=== PATIENT | male | born 1950 | race Caucasian/White ===

== ENCOUNTER → 2017-04-01 | Outpatient (REF) | payer OTHER ==
[~2017-04-01] MED LIST: CRES5TAB PO; LIAL1.2T PO; MULTTAB PO
== END ==
LOC: M SFHCLERA 09:15
PROVIDERS: ATTEND Dermatology
DX: D49.2 Neoplasm of unspecified behavior of bone, soft tissue, and skin (principal)

== ENCOUNTER 2017-09-10 10:28 | Day surgery (SDC) | payer OTHER ==
[2017-09-10] MEDS ORDERED: NEOSTIGMINE 10 MG/10 ML VIAL (J2710) (10:29)
[2017-09-10] MEDS: LR 1,000 ML IV (11:14)
[2017-09-10] MEDS ORDERED: ROCURONIUM BROMIDE 50 MG/5 ML VIAL As Ordered (12:34)
[2017-09-10] MEDS ORDERED: PROPOFOL 200 MG/20 ML VIAL As Ordered (12:34)
[2017-09-10] MEDS ORDERED: dexameTHASONE 4 MG/ML 1ML VIAL (J1100) As Ordered (12:34)
[2017-09-10] MEDS ORDERED: LIDOCAINE 2% INJ 100 MG/5 ML SDV (FOR ANES.) As Ordered (12:34)
[2017-09-10] MEDS ORDERED: fentaNYL 250 MCG/5 ML INJECTION (J3010) As Ordered (12:35)
[2017-09-10] MEDS ORDERED: MIDAZOLAM INJ 2 MG/2 ML VIAL (J2250) As Ordered (12:39)
[2017-09-10] MEDS ORDERED: ePHEDrine INJ 50 MG/ML VIAL As Ordered (13:15)
[2017-09-10] MEDS ORDERED: NEOSTIGMINE 10 MG/10 ML VIAL (J2710) As Ordered (13:34)
[2017-09-10] MEDS ORDERED: GLYCOPYRROLATE INJ 0.2 MG/ML 2 ML VIAL As Ordered (13:34)
[2017-09-10] MEDS ORDERED: HYDROmorphone HCL 2 MG/ML 1ML VIAL (J1170) As Ordered (13:47)
[2017-09-10] MEDS: LIDOCAINE W/EPINEPHRINE 1% 20ML VIAL As Ordered (14:37)
[2017-09-10] MEDS: BUPIVACAINE HCL 0.25% 10 ML VIAL As Ordered (14:37)
[2017-09-10] MEDS ORDERED: MORPHINE 2 MG/ML 1ML SYRINGE IV (15:15)
[2017-09-10] MEDS ORDERED: LR 1,000 ML IV (15:15)
[2017-09-10] MEDS ORDERED: PERCOCET 5MG/325MG TAB PO (15:15)
[2017-09-10] MEDS ORDERED: fentaNYL 100 MCG/2 ML INJECTION (J3010) IV (15:15)
[2017-09-10] MEDS ORDERED: NS 1,000 ML IV (15:15)
[2017-09-10] MEDS ORDERED: ONDANSETRON 4MG/2ML VIAL (J2405) IV ×2 (15:15)
[2017-09-10] MEDS ORDERED: NORCO, ANEXSIA 5/325MG TABLET (HYDROcodone/ACETAMINOPHEN) PO (15:15)
== END 2017-09-10 19:53 | disposition home or self-care (01) ==
LOC: M SDC 10:28
DX: K40.90 Unilateral inguinal hernia, without obstruction or gangrene, not specified as recurrent (principal); E78.00 Pure hypercholesterolemia, unspecified; I25.10 Atherosclerotic heart disease of native coronary artery without angina pectoris; G47.33 Obstructive sleep apnea (adult) (pediatric); K51.90 Ulcerative colitis, unspecified, without complications; R06.83 Snoring; Z79.899 Other long term (current) drug therapy; Z79.82 Long term (current) use of aspirin; Z85.828 Personal history of other malignant neoplasm of skin; Z87.81 Personal history of (healed) traumatic fracture
CPT/HCPCS: 49650

== ENCOUNTER → 2018-09-25 | Outpatient (REF) | payer OTHER ==
[~2018-09-25] MED LIST changes: +ASPI1TAB PO; +CLOB0.77; +HYDR1CRE TOP; +MESA1.2T; +OMEG300C3 PO; +[UNRECOGNIZED DRUG - OTHER] TOP
[2018-09-25 14:17] LABS: INFLUENZA A AMPLIFICATION POSITIVE (NEGATIVE); INFLUENZA B AMPLIFICATION NEGATIVE (NEGATIVE)
== END ==
LOC: M LAB REF 13:32
PROVIDERS: ATTEND Nurse Practitioner Adult Health
DX: R50.9 Fever, unspecified (principal)

== ENCOUNTER 2019-11-26 10:32 | Emergency (ER) | payer OTHER ==
[~2019-11-26] VITALS: Ht 175.3 cm; Wt 93.1 kg
[~2019-11-26 10:32] MED LIST changes: -ASPI1TAB PO; +ASPI81TA26 PO
[2019-11-26] MEDS ORDERED: ROSU20TA5 (10:43)
[2019-11-26] MEDS ORDERED: ISOVUE-370 76% 100ML VIAL (Q9967) As Ordered ONE (11:31)
[2019-11-26 11:44] LABS: BASO % 0.3 % (0.0-1.0); EOS % 0.4 % (0.0-3.0); HEMATOCRIT 47.5 % (42.0-52.0); HEMOGLOBIN 15.8 g/dl (13.5-17.5); LYMPH # 0.8 10^3/uL (1.5-5.0); LYMPH % 7.6 % (24.0-44.0); MEAN CORPUSCULAR HEMOGLOBIN 30.7 pg (27.0-33.0); MEAN CORPUSCULAR HGB CONC 33.3 g/dl (32.0-36.5); MEAN CORPUSCULAR VOLUME 92.4 fl (80.0-96.0); MONO # 1.5 10^3/uL (0.0-0.8); MONO % 13.9 % (0.0-5.0); NEUTROPHILS # 8.5 10^3/uL (1.5-8.5); NEUTROPHILS % 77.4 % (36.0-66.0); PLATELET COUNT, AUTOMATED 152 10^3/uL (150-450); RED BLOOD COUNT 5.14 10^6/uL (4.30-6.10); WHITE BLOOD COUNT 10.9 10^3/uL (4.0-10.0)
[2019-11-26 11:57] LABS: ALBUMIN 3.9 GM/DL (3.2-5.2); BILIRUBIN,DIRECT 0.2 MG/DL (0.0-0.2); BILIRUBIN,TOTAL 0.6 MG/DL (0.2-1.0); TOTAL PROTEIN 7.6 GM/DL (6.4-8.2)
[2019-11-26] MEDS ORDERED: CIPR-249 PO (12:02)
[2019-11-26] MEDS ORDERED: FLAG500T PO (12:02)
[2019-11-26] MEDS ORDERED: ONDA4TAB6 PO (12:03)
[2019-11-26 12:15] VITALS: BP 134/85
--- NOTE | 2019-11-26 12:42 | REP ---
CT ABDOMEN AND PELVIS WITH IV CONTRAST: TECHNIQUE: Axial contrast enhanced images from the lung bases to the pubic symphysis using 100 mL Isovue 370 intravenous contrast material with multiplanar reformations. Visualized lung bases demonstrate fibroatelectatic change. Liver, spleen, adrenals, pancreas and kidneys are unremarkable. There is no hydronephrosis bilaterally. There is mild atherosclerotic calcification of the abdominal aorta without aneurysm. There is no significant adenopathy. No free air is seen. Multiple sigmoid diverticula are present. There is diffuse thickening of the sigmoid colon with pericolonic inflammation and a mild amount of adjacent free fluid. Findings are consistent with sigmoid diverticulitis. There is no evidence of abscess. Urinary bladder is mildly distended and grossly unremarkable. Prostate is somewhat enlarged. There are degenerative changes of the spine. IMPRESSION: Sigmoid diverticulitis. Mild free fluid in the left pelvis. No free air or abscess. Electronically Signed by Brennan Quinn MD 11/26/2019 02:34 P
== END 2019-11-26 12:16 | disposition home or self-care (01) ==
LOC: M ED 10:32
DX: K57.32 Diverticulitis of large intestine without perforation or abscess without bleeding (principal); E78.5 Hyperlipidemia, unspecified; Z79.82 Long term (current) use of aspirin; Z79.899 Other long term (current) drug therapy
CPT/HCPCS: 36415; 74177; 80047; 80076; 83690; 85025; 99284; Q9967

== ENCOUNTER 2020-03-16 06:41 | Day surgery (SDC) | payer OTHER ==
[~2020-03-16 06:41] MED LIST changes: +CIPR-249 PO; +FLAG500T PO; +ONDA4TAB6 PO; +ROSU20TA5
[2020-03-16] MEDS ORDERED: LIDOCAINE 2% 100MG/5ML SDV (FOR ANES.) ONE (07:14)
[2020-03-16] MEDS ORDERED: propofoL 200 MG/20 ML VIAL ONE (07:14)
--- NOTE | 2020-04-20 11:27 | ROOR ---
Patient Name: Calvin Spencer Procedure Date: 03/16/2020 8:24 AM Date of : 1950 Age: 69 Room: 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 Procedure: Pre-Anesthesia Assessment: - The heart rate, respiratory rate, oxygen saturations, blood pressure, adequacy of pulmonary ventilation, and response to care were monitored throughout the procedure. The Colonoscope was introduced through the anus and advanced to the cecum, identified by appendiceal orifice and ileocecal valve. The colonoscopy was performed without difficulty. The patient tolerated the procedure well. The quality of the bowel preparation was excellent. Findings: The perianal and digital rectal examinations were normal. Non-bleeding internal hemorrhoids were found during retroflexion. The hemorrhoids were small and Grade I (internal hemorrhoids that do not prolapse). Multiple small and large-mouthed diverticula were found in the recto-sigmoid colon, sigmoid colon and descending colon. A diminutive polyp was found in the ascending colon. The polyp was sessile. The polyp was removed with a cold biopsy forceps. Resection and retrieval were complete. A small polyp was found at 40 cm proximal to the anus. The polyp was sessile. The polyp was removed with a cold snare. Resection and retrieval were complete. The exam was otherwise without abnormality on direct and retroflexion views. Impression: - Non-bleeding internal hemorrhoids. - Diverticulosis in the recto-sigmoid colon, in the sigmoid colon and in the descending colon. - One diminutive polyp in the ascending colon, removed with a cold biopsy forceps. Resected and retrieved. - One small polyp at 40 cm proximal to the anus, removed with a cold snare. Resected and retrieved. - The examination was otherwise normal on direct and retroflexion views. - The exam was otherwise normal to the cecum. Recommendation: - Patient has a contact number available for emergencies. The signs and symptoms of potential delayed complications were discussed with the patient. Return to normal activities tomorrow. Written discharge instructions were provided to the patient. - High fiber diet. - Discharge patient to home. - Continue present medications. - Await pathology results. - Telephone GI clinic for pathology results in 1 week. - Repeat colonoscopy in 5 years for surveillance based on pathology results. - Return to referring physician. - The findings and recommendations were discussed with the patient. Long Roblero MD Long Roblero MD 03/16/2020 8:53:28 AM Number of Addenda: 0 Note Initiated On: 03/16/2020 8:24 AM Estimated Blood Loss: Estimated blood loss: none.
== END 2020-03-16 11:17 | disposition home or self-care (01) ==
LOC: M SDC 06:41
PROVIDERS: ATTEND Internal Medicine Gastroenterology
DX: D12.2 Benign neoplasm of ascending colon (principal); Z86.010 Personal history of colon polyps; K57.30 Diverticulosis of large intestine without perforation or abscess without bleeding; K64.0 First degree hemorrhoids; Z79.82 Long term (current) use of aspirin; Z79.899 Other long term (current) drug therapy

== ENCOUNTER → 2020-07-05 | Outpatient (CLI) | payer SELFPAY | LOC: EEVIPCON 13:37 → M LABSMTC 13:37 | PROVIDERS: ATTEND Pediatrics | DX: Z20.828 Contact with and (suspected) exposure to other viral communicable diseases (principal) ==

== ENCOUNTER → 2021-04-24 | Outpatient (REF) | payer OTHER ==
[~2021-04-24] MED LIST changes: +ROSU40TA4 PO; +VITMTA PO
== END ==
LOC: M LAB REF 09:39
PROVIDERS: ATTEND Internal Medicine Gastroenterology
DX: K51.30 Ulcerative (chronic) rectosigmoiditis without complications (principal)

== ENCOUNTER → 2021-07-15 | Outpatient (CLI) | payer OTHER | LOC: M LABSMTC 11:07 | PROVIDERS: ATTEND Anesthesiology | DX: Z01.812 Encounter for preprocedural laboratory examination (principal); Z20.822 Contact with and (suspected) exposure to COVID-19 ==

== ENCOUNTER 2021-07-20 07:36 | Day surgery (SDC) | payer OTHER ==
[~2021-07-20] VITALS: Ht 177.8 cm; Wt 83.9 kg
[~2021-07-20 07:36] MED LIST changes: +NS 1,000 ML IV ONE
--- OUTSIDE RECORDS SUMMARY | 2021-07-20 07:40 | CCD | Continuity of Care Document ---
Author Author Calvin Hatch Organization Unknown Address [address] [place] [address] Phone [phone] Care Team Providers Care Line Tender Flakeboard Name Role Phone Bautista Aburto MD. AUTM [phone] Problems Active Problems Provider Date Sleep apnea Rip Manzanares MD Onset: 03/27/2021 Age-related cataract Rip Manzanares MD Onset: 03/27/2021 History of phacoemulsification of catara ct with implantation of intraocular lens Rip Manzanares MD Onset: 05/05/2021 Social History Type Date Description Comments Sex Unknown ETOH Use Rarely consumes alcohol Tobacco Use Start: Unknown Patient has never smoked Smoking Status Reviewed: 05/09/21 Patient has never smoked Allergies and adverse reactions Description No Known Drug Allergies Medications Active Medications SIG Qnty Indications Ordering Provide r Date Ocuflox 0.3% Solution 1 drop in the left eye four times a day 10ml Rip Manzanares MD 2020 Pred Forte 1% Suspension 1 drop left eye 4 x day 5ml Rip Manzanares MD 04/12/2021 Crestor 10mg Tablets 1 by mouth every day Unknown Multi Vitamin Tablets Unknown Lialda 1.2gm Tablets DR Unknown Aspirin 81mg Tablets DR 1 by mouth every day Unknown Immunizations Description No Information Available Vital Signs Date Vital Result Comment 05/17/2021 9:19am Intraocular Pressure Right Eye 15 mmHg Tp 09:20 Am Intraocular Pressure Left Eye 16 mmHg Tp 09:20 A m 05/05/2021 1:38pm Intraocular Pressure Right Eye 15 mmHg Tp 01:38 PM Intraocular Pressure Left Eye 14 mmHg Tp Results Description No Information Available Procedures Date Code Description Status 03/28/2021 17613 IOL Master Completed 03/28/2021 05640 Exam Comprehensive, New PT Compl eted Medical Devices Description No Information Available Encounters Type Date Location Provider Dx Diagnosis Office Visit 05/17/2021 9:30a Main Office Sonu Hatch, OD Z96.1 Presence of intraocular lens Office Visit 05/05/2021 1:30p Main Office Rip Manzanares MD Z96.1 Presence of intraocular lens Office Visit 03/28/2021 7:50a Main Office Rip Manzanares MD H25.1 3 Age- related nuclear cataract, bilateral H35.372 Puckering of macula, left ey e Assessments Date Code Description Provider 05/17/2021 Z96.1 Presence of intraocular lens Sco maribell Hatch, OD 05/05/2021 Z96.1 Presence of intraocular lens Warren gisela Manzanares MD 04/12/2021 H25.12 Age-related nuclear cataract, le ft eye Rip Manzanares MD 04/12/2021 H25.12 Age-related nuclear cataract, le ft eye Schedule HX/Phys/Calc 03/28/2021 H25.13 Age-related nuclear cataract, bi lateral Rip Manzanares MD 03/28/2021 H25.13 Age-related nuclear cataract, bi lateral Rip Manzanares MD 03/28/2021 H35.372 Puckering of macula, left eye [facility] Triston Manzanares MD 03/28/2021 H25.13 Age-related nuclear cataract, bi lateral Schedule HX/Phys/Calc Plan of Treatment Future Appointment(s):* 01/17/2022 8:15 am - Rip Manzanares MD at Main Office 05/17/2021 - Sonu Hatch, OD* Z96.1 Presence of intraocular lens* Comments: * -d/w pt. Post-op care.- Continue Pred forte 1 drop four times a day left eye for 1 week then two times a day for 1 week then one time a day for one week then discontinue - Updated glasses prescription given today OK to use +2.50 OTC readers PRN * Follow up:* 8-10 months dilation IOL check with SGS Functional Status Description No Information Available Mental Status Description No Information Available Referrals Description No Information Available
--- OUTSIDE RECORDS SUMMARY | 2021-07-20 07:40 | CCD | Continuity of Care Document ---
Author Author Calvin Manzanares Organization Unknown Address [address] [place] [address] Phone [phone] Care Team Providers Care Ash Collector Name Role Phone Bautista Aburto MD. AUTM [phone] Problems Active Problems Provider Date Sleep apnea [...] Information Available Procedures Date Code Description Status 05/04/2021 75626 Extracapsular Cat RE M W/Insert IOL,Manual/Phacoemulsification OS Completed 03/28/2021 96552 IOL Master Completed 03/28/2021 85390 Exam Comprehensive, New PT Compl eted Medical [...] of intraocular lens Warren gisela Manzanares MD 05/04/2021 H25.12 Age-related nuclear cataract, le ft eye Rip Manzanares MD 04/12/2021 H25.12 Age-related nuclear cataract, le ft eye Rip Manzanares MD 04/12/2021 H25.12 Age-related nuclear cataract, le ft eye Schedule HX/Phys/Calc 03/28/2021 H25.13 Age-related nuclear cataract, bi lateral Rip Manzanares MD 03/28/2021 H25.13 Age-related nuclear cataract, bi lateral Rip Manzanares MD 03/28/2021 H35.372 Puckering of macula, left eye [facility] Triston Manzanares MD 03/28/2021 H25.13 Age-related nuclear [...]
--- OUTSIDE RECORDS SUMMARY | 2021-07-20 07:40 | CCD | Continuity of Care Document ---
Author Author Calvin PAUL Organization Unknown Address [address] [place] [address] Phone [phone] Care Team Providers Care Budget Manager Name Role Phone Bautista Aburto MD [facility] [phone] Problems Active Problems Provider Date Atopic dermatitis Tomas Acevedo Onset: 2010 Social History Type Date Description Comments Sex Unknown Tobacco Use Start: Unknown Never Smoked Cigarettes Smoking Status Reviewed: 07/17/21 Never Smoked Cigarettes ETOH Use Drinks Alcoholic Beverages Occas ionally Allergies and adverse reactions Description No Known Drug Allergies Medications Active Medications SIG Qnty Indications Ordering Provide r Date Cefdinir 300mg Capsules 1 cap by mouth twice a day for 7 days 14caps J20.9 Patrica Song JR. 07/17/2021 Albuterol Sulfate HFA 108(90Base) mcg/Act Aerosol 2 puffs inhaled every 4-6 hours as needed for sob/wheeze 8.500gm J20.9 Bautista Aburto JR., M.D. 07/17/2021 Lialda Unknown Crestor Unknown Mvi Unknown Aspir-[address] qd Unknown Immunizations Description No Information Available Vital Signs Date Vital Result Comment 07/17/2021 3:00pm BP Systolic 154 mmHg BP Diastolic 107 mmHg Heart Rate 84 /min Respiratory Rate 14 /min O2 % BldC Oximetry 96 % Body Temperature 98.6 F Weight 190.00 lb Height 70 inches 5'10" BMI (Body Mass Index) 27.3 kg/m2 Pain Level 0 01/02/2011 7:00pm BP Systolic 130 mmHg BP Diastolic 90 mmHg Heart Rate 80 /min Respiratory Rate 14 /min O2 % BldC Oximetry 98 % Body Temperature 98.0 F Weight 200.00 lb Height 70 inches 5'10" BMI (Body Mass Index) 28.7 kg/m2 Pain Level 0 Results Description No Information Available Procedures Date Code Description Status 07/17/2021 12248 Office/Outpatient New Low MDM 30 -44 Minutes Completed Medical Devices Description No Information Available Encounters Type Date Location Provider Dx Diagnosis Office Visit 07/17/2021 2:35p Main Office Tomas James J2 0.9 Acute bronchitis, unspecified R03.0 Elevated blood-pressure read ing, w/o diagnosis of htn Assessments Date Code Description Provider 07/17/2021 J20.9 Acute bronchitis, unspecified Tomas Benitez 07/17/2021 R03.0 Elevated blood-press ure reading, without diagnosis of hypertension Tomas James Plan of Treatment 07/17/2021 - Tomas James* J20.9 Acute bronchitis, unspecified* New Medication:* Cefdinir 300 mg - 1 cap by mouth twice a day for 7 days * Albuterol Sulfate HFA 108(90 Base) mcg/Act - 2 puffs inhaled every 4-6 hours as needed for sob/wheeze * Comments:* Discussed likely viral etiologyimproving as expectedsigns/symptoms of bacterial etiologies discussed, start antibiotics if needed for concerning symptoms Supportive careIncrease fluidsRest OTC cough/cold meds as needed per package instructionsFollow with PCPReturn as needed for increasing or persisting symptoms * R03.0 Elevated blood-pressure reading, without diagnosis of hypertension* Comments:* follow with PCP no history of HTN Functional Status Description No Information Available Mental Status Description No Information Available Referrals Description No Information Available
--- OUTSIDE RECORDS SUMMARY | 2021-07-20 07:40 | CCD | Continuity of Care Document ---
Author Author Calvin RUBI MD Organization Unknown Address [address] [place] [address] Phone [phone] Care Team Providers Care Auto Body Mechanic Name Role Phone Bautista Aburto MD @ [facility] Int AUTM AUTM Unavailable Problems Active Problems Provider Date Inguinal hernia without obstruction AND without gangrene Varinder Singh JR, MD Onset: 09/10/2017 Allergic rhinitis Yung Dorman MD Onset: 06/01/2014 Obstructive sleep apnea syndrome Yung Dorman MD Onset: 05/29/2011 Overweight Yung Dorman MD Onset: 06/05/2011 Social History Type Date Description Comments Sex Unknown ETOH Use Rarely consumes alcohol Recreational Drug Use Denies Drug Use Tobacco Use Reviewed: 05/29/18 Patient has never smoked Smoking Status Reviewed: 07/27/20 Patient has never smoked Allergies, Adverse Reactions, Alerts Description No Known Drug Allergies Medications Active Medications SIG Qnty Indications Ordering Provide r Date Miralax 17GM/Scoop Powder use as directed see dr rubi colon preparation instructions 510gm K51.30 Balaji sylwia Rubi MD 04/10/2021 Milk Of Magnesia 1200mg/15ML Suspe nsion take 45 milliliters by mouth as directed on colonoscopy prep sheet. 355ml K51.30 Jeison Rubi MD 04/10/2021 CPAP +5 Marras Yung Dorman MD 05/23 [address]da [address] Table[address] 2 tabs every day Unknown Aspirin 81mg Tablets DR 1 by mouth every day Unknown Multivitamin Men 50+ Men 50+ Table ts tab by mouth every day Unknown Tretinoin (Emollient) 0.05% Cream every week Unknown Proctosol HC 2.5% Cream apply to affected area as needed Unknown Crestor 40mg Tablets Unknown Immunizations CPT Code Status Date Vaccine Lot # [id number] Given 05/28/2018 Influenza Virus Vaccine, Quadrivalent, Slit Virus, [place] Use 47330 Given 05/26/2015 Influenza Virus Split 3 Yrs And Above For Intramuscular Use 26820 Given 05/17/2014 Influenza Virus Split 3 Yrs And Above For Intramuscular Use Q2036 Given 05/12/2013 Influenza Vaccine 3 Years Of Age Or Older (Flulaval) Q2036 Given 05/20/2012 Influenza Vaccine 3 Years Of Age Or Older (Flulaval) Vital Signs Date Vital Result Comment 04/10/2021 10:31am BP Systolic 138 mmHg BP Diastolic 92 mmHg Height 70 inches 5'10" Weight 194.00 lb BMI (Body Mass Index) 27.8 kg/m2 Alpine Body Weight 166 lb Weight 87.998 kg BSA (Body Surface Area) 2.06 m2 07/27/2020 10:42am BP Systolic 130 mmHg BP Diastolic 80 mmHg Heart Rate 70 /min O2 % BldC Oximetry 98 % Room Air Height 70 inches 5'10" Weight 196.00 lb BMI (Body Mass Index) 28.1 kg/m2 Alpine Body Weight 166 lb Weight 88.906 kg BSA (Body Surface Area) 2.07 m2 Results Test Acquired Date Facility Test Result H/L Range Note Laboratory test finding 04/24/2021 [facility] Main Lab [address] [place], [place] [id number] [phone] Calprotectin Stool 28 ug/g Normal 0-120 1, 2 1 Concentration Interpreta tion Follow-Up <16 - 50 ug/g Normal None >50 -120 ug/g Borderline Re-evaluate in 4-6 weeks >120 ug/g Abnormal Repeat as clinically indicated Performed at: - [address] [id number] Teacher: Kory Frey MD, Phone: [phone] 05/11/21 (Thr May 11) 03:53 PM JEISON RUBI no significant inflammation(no active colitis) Procedures Date Code Description Status 04/10/2021 84899 Office/Outpatient New Low MDM 30 -44 Minutes Completed Medical Devices Description No Information Available Encounters Type Date Location Provider Dx Diagnosis Office Visit 04/10/2021 10:30a [facility] Gastroenterology Pra ctice Jeison Rubi MD K51.30 Ulcerative (chronic) rectosi gmoiditis without complications Assessments Date Code Description Provider 04/10/2021 K51.30 Ulcerative (chronic) rectosigmoi ditis without complications Jeison Rubi MD Plan of Treatment Future Appointment(s):* 07/20/2021 3:30 pm - Yung Dorman MD at [facility] Pulmonary/Thoracic 04/10/2021 - Jeison Rubi MD* 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 his last 2 scopes were free of inflammation even on biopsy. I question the need for continued aggreaaaive follow up scopes and even perhaps the mesalamine he is still taking.I would recommend:1) colonoscopy with biopsy. dep on this, we can perhaps reduce intervals of colonoscop[y to every 2-3 yrs.---To be discussed2) cont Lialda at current dose. further rec dep on my colonoscopy. consideratiuon may be given to a d/c or wean.3) Stool calprotectin to assess inflammatory load Functional Status Description No Information Available Mental Status Description No Information Available Referrals Refer to Reason for Referral Status Appt Date Bernard Lu M.D. ULCERTIVE COLITIS Created [facility] [address] [facility], [address] [place] [address] [phone]
--- OUTSIDE RECORDS SUMMARY | 2021-07-20 07:40 | CCD | Continuity of Care Document ---
Author Author Calvin RUBI MD Organization Unknown Address [address] [place] [address] Phone [phone] Care Team Providers Care Pizza Driver Name Role Phone Bautista Aburto MD @ [facility] Int AUTM [phone] AUTM Unavailable Problems Active Problems Provider Date [...] directed on colonoscopy prep sheet. 355ml K51.30 Mehdi Rubi MD 04/10/2021 CPAP +5 Marras Yung [...] CPT Code Status Date Vaccine Lot # [id number] Given 05/28/2018 Influenza Virus Vaccine, Quadrivalent, Slit Virus, Im Use 09135 Given 05/26/2015 Influenza Virus Split 3 Yrs And Above For Intramuscular Use 00329 Given 05/17/2014 Influenza Virus Split 3 Yrs [...] lb BMI (Body Mass Index) 27.8 kg/m2 Spearman Body Weight 166 lb Weight 87.998 kg BSA (Body Surface Area) 2.06 m2 07/27/2020 10:42am BP Systolic 130 mmHg BP Diastolic 80 mmHg Heart Rate 70 /min O2 % BldC Oximetry 98 % Room Air Height 70 inches 5'10" Weight 196.00 lb BMI (Body Mass Index) 28.1 kg/m2 Spearman Body Weight 166 lb Weight 88.906 kg BSA (Body Surface Area) 2.07 m2 Results Description No Information Available Procedures Date Code Description Status 04/10/2021 01965 Office/Outpatient New Low MDM 30 -44 Minutes Completed Medical Devices Description No Information Available Encounters Type Date Location Provider Dx Diagnosis Office Visit 04/10/2021 10:30a [facility] Gastroenterology Pra ctice Mehdi Rubi MD K51.30 Ulcerative (chronic) rectosi gmoiditis without complications Assessments Date Code Description Provider 04/10/2021 K51.30 Ulcerative (chronic) rectosigmoi ditis without complications Mehdi Rubi MD Plan of Treatment Future Appointment(s):* 07/20/2021 3:30 pm - Yung Dorman MD at [facility] Pulmonary/Thoracic 04/10/2021 - Mehdi Rubi MD* 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 ULCERTIVE COLITIS Created [facility] [address] [facility], [address] [place] [address] [phone]
--- OUTSIDE RECORDS SUMMARY | 2021-07-20 07:40 | CCD | Continuity of Care Document ---
Author Author Calvin Aburto MD Organization Unknown Address [address] [facility] [address] [place] [address] Phone [phone] Care Team Providers Care Friction Paint Machine Tender Name Role Phone Bautista Aburto JR, MD AUTM Unavailable Problems Active Problems Provider Date Ulcerative colitis Bautista Aburto MD Onset: 07/13/2011 Obstructive sleep apnea syndrome Bautista Aburto MD Onset : 07/13/2011 Pure hypercholesterolemia Bautista Aburto MD Onset: 07/13 Pure hyperglyceridemia Bautista Aburto MD Onset: 07/13/20 11 Right bundle branch block Bautista Aburto MD Onset: 07/13 Social History Type Date Description Comments Sex Unknown ETOH Use Occasionally consumes liquor Tobacco Use Start: Unknown Patient has never smoked Allergies, Adverse Reactions, Alerts Description No Known Drug Allergies Medications Active Medications SIG Qnty Indications Ordering Provide r Date Zofran 4mg Tablets 1 by mouth every 6 hrs. as needed nausea 24tabs SERGIO Mcleod 09/25/2018 Prevnar 13 Suspension 0.5 cubic centimeters x 1 1units Bautista Aburto MD 08/07/2018 Shingrix 50mcg/0.5ML Suspension Re c administer 0.5 milliliters intramuscular, repeat in 2 to 6 months 2units Bautista Aburto MD 08/07/2018 Multivitamins Tablets 1 po q d 30tabs Bautista Aburto MD 07/13/[address] Table[address] 2 po qd Bautista Aburto MD 07/13/2011 Aspir-[address] 1 po qd Bautista Aburto MD 07/13/2011 Rosuvastatin Calcium 20mg Tablets 1 by mouth every day Unknown Medications Administered in Office Medication SIG Qnty Indications Ordering Provider Date Covid-19 vaccine, Unspecified Inj ection Unknown 08/28/2020 Immunization Adminstration,1 Vaccine/Tox oid Injection Bautista Aburto MD 2018 Immunizations CPT Code Status Date Vaccine Lot # [id number] Given 2019 Pneumovax 23 [id number] Given 07/31/2019 Pneumovax 23 [id number] U-Flu Given 05/28/2018 Influenza,Unspecified 80456 Given 02/10/2014 Tetanus/Diptheria(Td)Toxoids Preservative Free Q2037 Given 07/13/2011 Fluvirin Virus Vaccine Vital Signs Date Vital Result Comment 04/18/2021 1:30pm BP Systolic 128 mmHg BP Diastolic 70 mmHg Heart Rate 74 /min Weight 195.00 lb 08/15/2020 8:02am BP Systolic 130 mmHg BP Diastolic 79 mmHg Weight 194.00 lb Results Description No Information Available Procedures Date Code Description Status 04/18/2021 95742 Office/Outpatient Established Mo d MDM 30-39 Min Completed 03/29/2021 690818791 Diabetic Retinal Eye Exam Comple amanuel 03/16/2020 65412588 Colonoscopy Completed 03/09/2020 736264110 Diabetic Retinal Eye Exam Comple amanuel 12/07/2015 90708053 Colonoscopy Completed 01/04/2012 23183473 Colonoscopy Completed 07/30/2008 49312694 Colonoscopy Completed Medical Devices Description No Information Available Encounters Type Date Location Provider Dx Diagnosis Office Visit 04/18/2021 1:30p [facility] Bautista Aburto MD Z01.810 Encounter for preprocedural cardiovascul ar examination H25.012 Cortical age-related catarac t, left eye K51.90 Ulcerative colitis, unspecif ied, without complications E78.00 Pure hypercholesterolemia, u nspecified G47.33 Obstructive sleep apnea (randy lt) (pediatric) Assessments Date Code Description Provider 04/18/2021 Z01.810 Encounter for preprocedural card iovascular examination Bautista Aburto MD 04/18/2021 H25.012 Cortical age-related cataract, l eft eye Bautista Aburto MD 04/18/2021 K51.90 Ulcerative colitis, unspecified, without complications Bautista Aburto MD 04/18/2021 E78.00 Pure hypercholesterolemia, unspe cified Bautista Aburto MD 04/18/2021 G47.33 Obstructive sleep apnea (adult) (pediatric) Bautista Aburto MD Plan of Treatment Future Appointment(s):* 08/15/2021 7:40 am - [facility] * 08/16/2021 8:00 am - [facility] 04/18/2021 - Bautista Aburto MD* Z01.810 Encounter for preprocedural cardiovascular examination * H25.012 Cortical age-related cataract, left eye * K51.90 Ulcerative colitis, unspecified, without complications * E78.00 Pure hypercholesterolemia, unspecified * G47.33 Obstructive sleep apnea (adult) (pediatric) Functional Status Description No Information Available Mental Status Description No Information Available Referrals Description No Information Available
--- OUTSIDE RECORDS SUMMARY | 2021-07-20 07:40 | CCD | Continuity of Care Document ---
Author Author Calvin Manzanares Organization Unknown Address [address] [place] [address] Phone [phone] Care Team Providers Care X Ray Nurse Name Role Phone Bautista Aburto MD. AUTM [phone] Problems Active Problems Provider Date Sleep apnea Rip Manzanares MD Onset: 03/27/2021 Age-related cataract Rip Manzanares MD Onset: 03/27/2021 History of phacoemulsification of catara ct with implantation of intraocular lens Rip Manzanares MD Onset: 05/05/2021 Social History Type Date Description Comments Sex Unknown ETOH Use Rarely consumes alcohol Tobacco Use Start: Unknown Patient has never smoked Smoking Status Reviewed: 03/27/21 Patient has never smoked Allergies, Adverse Reactions, [...] Available Vital Signs Date Vital Result Comment 05/05/2021 1:38pm Intraocular Pressure Right Eye 15 mmHg Tp 01:38 PM Intraocular Pressure Left Eye 14 mmHg Tp 03/28/2021 8:19am Intraocular Pressure Right Eye 16 mmHg Tp 08:19 Am Intraocular Pressure Left Eye 12 mmHg Tp 08:19 A m Results Description No Information Available Procedures Date Code Description Status 03/28/2021 50286 IOL Master Completed 03/28/2021 55208 Exam Comprehensive, New PT Compl eted Medical Devices Description No Information Available Encounters Type Date Location Provider Dx Diagnosis Office Visit 05/05/2021 1:30p Main Office Rip Manzanares MD Z96.1 Presence of intraocular lens Office Visit 03/28/2021 7:50a Main Office Rip Manzanares MD H25.1 3 Age- related nuclear cataract, bilateral H35.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 Post-op care and instruction sheet. -Continue Ocuflox 1 drop four times a day left eye for 1 week then discontinue.-Continue Predforte 1 drop four times a day left eye for 2 weeks then two times a day for 1 week then one time a day for one week then discontinue * Follow up:* Keep scheduled appointment. Auto and refract. ou Dilate. os Functional Status Description No Information Available Mental Status Description No Information Available Referrals Description No Information Available
--- OUTSIDE RECORDS SUMMARY | 2021-07-20 07:40 | CCD ---
Author Author Mehdi Gusman MD [facility] Organization Mehdi Gusman MD [facility] Address [address] [address] Phone Care Team Providers Care Handling Tech Name Role Phone Uzma STRICKLAND, GINGER, Mehdi Soto Unavailable [phone] Trina Campos PP [phone] Reason for Referral No Reason for Referral Recorded Problems Includes: Active, inactive, and resolved Problems All Visits Onset Date - Time Resolved Date - Time Provider Co ndition Status Cataract Senile Posterior Subcapsular Polar 09/12/2020 - 12:00AM Kendall Roblero DO Inactive Cataract Senile Nuclear 09/12/2020 - 12:00AM Mehdi Gusman MD, FACS Active Retinal Tear 03/09/2020 - 12:00AM Mehdi Gusman MD, FACS Active Vitreous Hemorrhage 03/09/2020 - 12:00AM 09/12/2020 - 7:45AM Balaji Gusman MD, FACS Resolved Conjunctivitis Acute Atopic 05/18/2019 - 12:00AM Mehdi Gusman MD, FACS Inactive Trichiasis of Eyelid 05/18/2019 - 12:00AM Mehdi Lucas MD, FACS Inactive Epidermal Inclusion Cyst 05/01/2016 - 12:00AM Mehdi Gusman MD, FACS Active Note: both lower eyelids Blepharitis Squamous 05/01/2016 - 12:00AM Mehdi Lucas MD, FACS Active Squamous blepharitis left lower eyelid 05/01/2016 - 12:00AM Mehdi Schafer MD, FACS Active Squamous blepharitis left upper eyelid 05/01/2016 - 12:00AM Mehdi Schafer MD, FACS Active Squamous blepharitis right lower eyelid 05/01/2016 - 12:00AM Mehdi Schafer MD, FACS Active Vitreous Disorders Degeneration 05/01/2016 - 12:00AM Mehdi Gusman MD, FACS Active Blepharitis Both Eyelids 04/29/2015 - 12:00AM Mehdi Gusman MD, FACS Inactive Note: Unchanged Dry Eye Syndrome Both Eyes 04/29/2015 - 12:00AM Mehdi Gusman MD, FACS Active Note: Unchanged Vitreous Floaters Both Eyes 04/29/2015 - 12:00AM Mehdi Gusman MD, FACS Inactive Note: Unchanged Plan of Treatment Referrals To Diagnosis Referral to [facility] Mehdi Gusman MD, FACS [place] of retina without detachment, left eye Referral to Dr. Osbaldo Gusman MD, FACS Age-r elated nuclear cataract, left eye Findings Encounter Date Requested Referred to: Dr. Roblero 1 Year Follow-Up with Mehdi Gusman MD, FACS 09/12/2020 Assessments Includes: Assessments for all patient encounters Findings Encounter Date Chorioretinal scar Cataract Evaluation with Kendall Gilmore in DO 12/01/2020 Dry eye syndrome Cataract Evaluation with Kendall Gilmore in DO 12/01/2020 Nuclear senile cataract Cataract Evaluation with Kendall schaeffer DO 12/01/2020 Posterior subcapsular polar senile cataract Cataract E valuation with Kendall Roblero DO 12/01/2020 Vitreous degeneration Cataract Evaluation with Kendall flannery DO 12/01/2020 Dry eye syndrome of both eyes 1 Year Follow-Up with Beau Gusman MD, FACS 09/12/2020 Nuclear senile cataract 1 Year Follow-Up with Mehdi Mckay MD, FACS 09/12/2020 Posterior subcapsular polar senile cataract 1 Year Fol low-Up with Mehdi Gusman MD, FACS 09/12/2020 Squamous blepharitis right upper eyelid , right lower eyelid, left upper eyelid, left lower eyelid 1 Year Follow-Up with Mehdi Gusman MD, FACS 08/2020 Vitreous degeneration 1 Year Follow-Up with Mehdi bowman MD, FACS 09/12/2020 Retinal tear TRIAGE NON URGENT with Mehdi fuller MD, FACS 03/09/2020 Vitreous hemorrhage TRIAGE NON URGENT with Mehdi fuller MD, FACS 03/09/2020 Acute atopic conjunctivitis 1 Year Follow-Up with Mehdi Hines MD, FACS 05/18/2019 Dry eye syndrome of both eyes 1 Year Follow-Up with Beau Gusman MD, FACS 05/18/2019 Squamous blepharitis 1 Year Follow-Up with Mehdi fuller MD, FACS 05/18/2019 Trichiasis of the eyelid 1 Year Follow-Up with Mehdi Peguero MD, FACS 05/18/2019 Vitreous degeneration 1 Year Follow-Up with Mehdi bowman MD, FACS 05/18/2019 Dry eye syndrome of both eyes 1 Year Follow-Up with eBau Gusman MD, FACS 05/19/2018 Squamous blepharitis right upper eyelid , right lower eyelid, left upper eyelid, left lower eyelid 1 Year Follow-Up with Mehdi Gusman MD, FACS 03/2018 Vitreous degeneration 1 Year Follow-Up with Mehdi bowman MD, FACS 05/19/2018 Dry eye syndrome of both eyes 1 Year Follow-Up with Beau Gusman MD, FACS 05/02/2017 Squamous blepharitis right upper eyelid , right lower eyelid, left upper eyelid and left lower eyelid 1 Year Follow-Up with Mehdi Gusman MD, FACS 05/02/2017 Vitreous degeneration 1 Year Follow-Up with Mehdi bowman MD, FACS 05/02/2017 Dry eye syndrome of both eyes 1 Year Follow-Up with Beau Gusman MD, FACS 05/01/2016 Epidermal cyst right lower eyelid and left lower eyel id 1 Year Follow-Up with Mehdi Gusman MD, FACS 05/01/2016 Squamous blepharitis right upper eyelid , right lower eyelid, left upper eyelid, left lower eyelid 1 Year Follow-Up with Mehdi Gusman MD, FACS Vitreous degeneration 1 Year Follow-Up with Mehdi bowman MD, FACS 05/01/2016 Blepharitis in both eyes NEW PATIENT with Mehdi cummings MD, FACS 04/29/2015 Dry eye syndrome of both eyes NEW PATIENT with Mehdi Peguero MD, FACS 04/29/2015 Vitreous floaters in both eyes NEW PATIENT with Mehdi Lucas MD, FACS 04/29/2015 Instructions Instructions not supported for this document typeNo Instructions Recorded Medical Equipment - Implanted Devices Includes: Current and historical DevicesNo Medical Equipment Recorded Medications Includes: Current and historical Medications Current Medications (continue as prescribed) SB Low Dose ASA EC 81 MG Tablet Delayed Release 04/29/2015 Provider: Diagnosis: Daily Value Multivitamin Tablet 04/29/2015 Provider : Diagnosis: Crestor 10 MG Tablet 04/29/2015 Provider: Diagnosis: 1/2 tab (5mg) Lialda 1.2 GM Tablet Delayed Release 04/29/2015 Pro vider: Diagnosis: 2 tabs Past Medications on file Crestor 40 MG Tablet 04/29/2015 - 04/29/2015 Provider: Diagnosis: Lialda 1.2 GM Tablet Delayed Release 04/29/2015 - 04/29/2015 Provider: Diagnosis: Medications Administered Includes: Administered Medications in patient's chartNo Administered Medications Recorded Vital Signs Includes: Vital Signs from 07/04/2020 through 07/04/2021No Vital Signs Recorded For Specified Dates Results Includes: Results from 07/04/2020 through 07/04/2021No Results Recorded For Specified Dates History of Present Illness History of Present Illness not supported for this document typeNo History of Present Illness Recorded Social History Description Last Updated Tobacco non-user 09/12/2020 Never smoked 05/18/2019 Alcohol 05/18/2019 No tobacco use 05/18/2019 Not using drugs 05/18/2019 Smoking status : Never smoker 05/18/2019 Alcohol use is infrequent 04/29/2015 Procedures and Surgical History Includes: Procedures from 07/04/2020 through 07/04/2021 Procedures Code Diagnosis Performing Provider Service Location Service Date Intermediate Eye Exam Established Patient [id number] Age-related nuclear cataract, right eye Kendall Aldridge MD [facility] 12/01/2020 Intermediate Eye Exam Established Patient [id number] Age-related nuclear cataract, left eye, Posterior subcapsular polar age-related cataract, left eye, Dry eye syndrome of bilateral lacrimal glands, Vitreous degeneration, bilateral Mehdi Gusman MD, FACS Mehdi Gusman MD [facility] 09/12/2020 Surgical History Last Updated History of repair of retinal detachment of the left eye PPV by Dr. Alcazar @ [facility] 04/04/2020 09/12/2020 No surgical / procedural history 05/18/2019 Medical History Includes: Medical History in patient's chart Description Last Updated Recent change in medical history PPV OS by Dr. Alcazar @ [facility] 04/04/2020 12/01/2020 Not currently wearing eyeglasses 05/18/2019 Reported medical history : Ulcerative Co litis, Sleep Apnea with Cpap, Broken Leg in 1965 04/29/2015 History of hyperlipidemia 04/29/2015 Family History Includes: Family History in patient's chart Description Last Updated Fraternal history of family history of cancer 05/02/20 17 Fraternal history of heart disease 05/02/2017 Maternal history of family history of cancer 7 Maternal history of heart disease 05/02/2017 Paternal history of family history of cancer 7 Paternal history of heart disease 05/02/2017 Maternal history of cataract 04/29/2015 Review of Systems Review of Systems not supported for this document typeNo Review of Systems Recorded Mental Status Mental Status not supported for this document type Description Oriented to time, place, and person Functional Status Functional Status not supported for this document typeNo Functional Status Recorded Physical Exam Physical Exam not supported for this document typeNo Physical Exam Recorded Immunizations Includes: Immunizations in patient's chartNo Immunizations Recorded Allergies Includes: Active, inactive, and resolved AllergiesNo Known Allergies Encounters Includes: Encounters from 07/04/2020 through 07/04/2021 Encounter Provider Location Date Check-In Time Check-Out Time D iagnosis Cataract Evaluation Kendall Aldridge MD [facility] 0 12/01/2020 2:30PM 3:24PM Cataract Senile Nuclear, Cat aract Senile Posterior Subcapsular Polar, Dry Eye Syndrome, Chorioretinal Scar, Vitreous Disorders Degeneration 1 Year Follow-Up Mehdi Gusman MD, FACS [facility] 09/12/2020 7:42AM 8:23AM Dry Eye Syndrome Bot h Eyes, Blepharitis Squamous, Vitreous Disorders Degeneration, Cataract Senile Posterior Subcapsular Polar, Cataract Senile Nuclear Insurance Includes: Active Insurance Policies Plan Name Member ID Group # Subscriber Relationship Effective Da [address] [id number] Calvin Spencer Self Advance Directives Includes: Current Advance DirectivesNo Advance Directives Recorded Health Concerns Includes: Active Health ConcernsNo Active Health Concerns Recorded Goals Includes: Active GoalsNo Active Goals Recorded Interventions Includes: Interventions for active GoalsNo Interventions Recorded Evaluations & Outcomes Includes: Evaluations & Outcomes for active GoalsNo Outcomes Recorded
--- OUTSIDE RECORDS SUMMARY | 2021-07-20 07:40 | CCD ---
Author Author Mehdi Gusman MD [facility] Organization Mehdi Gusman MD [facility] Address [address] [address] Phone Care Team Providers Care Rug Renovator Name Role Phone Uzma STRICKLAND, GINGER, Mehdi Soto Unavailable [phone] Trina Campos PP [phone] Reason for Referral No Reason for Referral [...] Year Follow-Up with Beau Gusman MD, FACS 05/19/2018 Squamous blepharitis right [...] Recorded Vital Signs Includes: Vital Signs from 06/06/2020 through 06/06/2021No Vital Signs Recorded For Specified Dates Results Includes: Results from 06/06/2020 through 06/06/2021No Results Recorded For Specified Dates History of Present Illness History of Present Illness not supported for this document typeNo History of Present Illness Recorded Social History Description Last Updated Tobacco non-user 09/12/2020 Alcohol 03/09/2020 No tobacco use 03/09/2020 Not using drugs 03/09/2020 Smoking status : Never smoker 03/09/2020 Alcohol use is infrequent 04/29/2015 Procedures and Surgical History Includes: Procedures from 06/06/2020 through 06/06/2021 Procedures Code Diagnosis Performing Provider Service Location Service Date Intermediate Eye Exam Established Patient [id number] Age-related nuclear cataract, right eye Kendall Aldridge MD [facility] 12/01/2020 Intermediate Eye Exam Established Patient 36371 Age-related nuclear cataract, left eye, Posterior subcapsular polar age-related cataract, left eye, Dry eye syndrome of bilateral lacrimal glands, Vitreous degeneration, bilateral Mehdi Gusman MD, FACS Mehdi Gusman MD [facility] 09/12/2020 Surgical History Last Updated History of repair of retinal detachment of the left eye PPV by Dr. Alcazar @ [facility] 04/04/2020 09/12/2020 No surgical / procedural history 03/09/2020 Medical History Includes: Medical History in patient's chart Description Last Updated Recent change in medical history PPV OS by Dr. Alcazar @ [facility] 04/04/2020 12/01/2020 Not currently wearing eyeglasses 03/09/2020 Reported medical history : Ulcerative Co litis, [...] AllergiesNo Known Allergies Encounters Includes: Encounters from 06/06/2020 through 06/06/2021 Encounter Provider Location Date Check-In Time Check-Out Time D iagnosis Cataract Evaluation Kendall Aldridge MD [facility] 0 12/01/2020 2:30PM 3:24PM Cataract Senile Nuclear, [...] ID Group # Subscriber Relationship Effective Da [facility] [id number] Calvin Spencer Self Advance Directives Includes: Current Advance DirectivesNo Advance Directives Recorded Health Concerns Includes: Active Health ConcernsNo Active Health Concerns Recorded Goals Includes: Active GoalsNo Active Goals Recorded Interventions Includes: Interventions for active GoalsNo Interventions Recorded Evaluations & Outcomes Includes: Evaluations & Outcomes for active GoalsNo Outcomes Recorded
--- OUTSIDE RECORDS SUMMARY | 2021-07-20 07:40 | CCD | Continuity of Care Document ---
Author Author Calvin PAUL Organization Unknown Address [address] [place] [address] Phone [phone] Care Team Providers Care Dining Room Host Name Role Phone Bautista Aburto MD AUT [phone] Problems Active Problems Provider Date Atopic dermatitis Tomas Acevedo Onset: 2010 Social History Type Date Description Comments Sex Unknown Tobacco Use Start: Unknown Never Smoked Cigarettes Smoking Status Reviewed: 07/17/21 Never Smoked Cigarettes ETOH Use Drinks Alcoholic Beverages Occas ionally Allergies and adverse reactions Description No Known Drug Allergies Medications Active Medications SIG Qnty Indications Ordering Provide r Date Lialda Unknown Crestor Unknown Mvi Unknown Aspir-81 [...] 0 Results Description No Information Available Procedures Description No Information Available Medical Devices Description No Information Available Encounters Description No Information Available Assessments Description No Information Available Plan of Treatment No Information Available Functional Status Description No Information Available Mental Status Description No Information Available Referrals Description No Information Available
--- OUTSIDE RECORDS SUMMARY | 2021-07-20 07:40 | CCD ---
Author Author [facility] Organization [facility] Address Unknown Phone Unavailable Care Team Providers Care Supply Service Worker Name Role Phone Amanda Morrow Unavailable PROBLEMS Type Condition ICD9-CM Code ROA76-AT Code Onset Dates Condition S tatus W/U Status Risk SNOMED Code Notes Problem History of nonmelanoma skin cancer Z85.828 Activ e confirmed 073265213 Problem History of squamous cell carcinoma Z85.89 Activ e confirmed 86233094407183 Problem Actinic keratoses L57.0 Active confirmed 40 [id number] Problem Sun-damaged skin L57.8 Active confirmed 439 46237 Problem Rosacea L71.9 Active confirmed [id number] Problem Seborrheic keratoses L82.1 Active confirmed [id number] ALLERGIES No Known Allergies ENCOUNTERS from 1950 to 2021-04-25 Encounter Location Date Provider Diagnosis [facility] Dermatology [address] [place] [address] [place] [address] Apr, Amanda Morrow Skin cancer screening Z12.83 ; History of squamous cell carcinoma Z85.89 ; Actinic keratoses L57.0 ; Bug bite, initial encounter W57.XXXA ; Rosacea L71.9 ; Seborrheic keratoses L82.1 ; Tinea pedis of both feet B35.3 and Onychomycosis B35.1 IMMUNIZATIONS No Information SOCIAL HISTORY Tobacco Use: Social History Observation Description Date Details (start date - stop date) Never Smoker Sex Assigned At : Social History Observation Description Sex Assigned At Unknown Language: Question Answer Notes Languages spoken: Welsh Yazidi: Question Answer Notes Yazidi [facility] Tobacco Use: Question Answer Notes Are you a: never smoker REASON FOR REFERRAL No Information VITAL SIGNS Weight 193.0 lbs Apr, Height 70 in Apr, BMI 27.69 kg/m2 Apr, Blood pressure systolic 120 mm Hg Apr, Blood pressure diastolic 74 mm Hg Apr, MEDICATIONS Medication SIG (Take, Route, Frequency, Duration) Notes Start Da te End Date Status Ketoconazole 2 % 1 application to affected ar ea Externally to rash in groin twice a day for 30 days Feb, Not-Taki ng Retin-A 0.05 % 1 application to affected ar ea in the evening to face Externally to face, forehead and ears once daily one time a week for 30 day(s) Jul, Not-Taking Multivitamins 1 tablet Orally Once a day Active Efudex 5 % 1 application dorsal hands u p to forearms Externally Twice a day x2 weeks for 30 Days Oct, Not-Taking Lialda 1.2 GM 2 tablets with a meal Orally Once a day for 30 day(s) Active Aspir-81 81 MG 1 tablet Orally Once a day for 30 day(s) Active Clobetasol Propionate 0.05 % External for 14 Not-Taking Fluticasone Propionate 0.05 % 1 application to affecte d area Externally to rash in groin Once a day for 14 day(s) Feb, Not-Taking [place] MG 1 capsule Orally Once a day Not-Taking Doxycycline Hyclate 100 MG 1 capsule Orally Twice a day for 21 d ay(s) Apr, Active Crestor 40 MG 1 tablet Orally Once a day Active PROCEDURES No Information RESULTS No Results REASON FOR VISIT FBSE HX OF SCC MEDICAL (GENERAL) HISTORY Type Description Date Medical History HX OF COLITIS Medical History HX OF SCC-R ear, 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 Patient counseled to wear sunscreen or use sun protective clothing when outdoors. Avoid peak hours of sun between 10-2. Patient instructed to call with any new or changing lesions. Apr, History of squamous cell carcinoma (ICD-10 - Z85 .89) NER Apr, Actinic keratoses (ICD-10 - L57.0) Cryotherapy x [ 2] number of sites. [place] protocol was followed in compliance with [facility] standards. Patient was counseled regarding the indication for treatment (precancerous state for actinic keratosis or cosmetic reasons if done for seborrheic keratoses, acrochordons or warts) as well as, the method and expected results to include compromise of the skin barrier, bleeding, scarring/white area, redness at site, lesion recurrence, and pain. Patient was consented to the risks and benefits of the procedure and gave informed consent. Lesion(s) with locations as indicated in the physical examination were treated. Lesion(s) were treated with 2 cycles of liquid nitrogen with a thaw time of at least ten seconds. Therapy was applied in a pulsed fashion to minimize collateral tissue injury. Patient was instructed to use Vaseline ointment to the area(s) until healed. Patient tolerated the procedure well and left in stable condition. Pain before and after the procedure were assessed to not be significantly different than baseline. Apr, Bug bite, initial encounter (ICD-10 - W57.XXXA) Patient declined lyme titer, would like to treat with 21 days of doxy Apr, Rosacea (ICD-10 - L71.9) Discussed nature of rosacea and factors that can exacerbate the condition including anything that causes flushing/blushing - spicy food, alcohol, sunlight, exercise, and the need to try to limit these factors. Use a mild cleanser on face like Cetaphil liquid cleanser and luke warm water when cleansing. Apr, Seborrheic keratoses (ICD-10 - L82.1) Benign Lesion Counseling. The patient was extensively counseled regarding the benign nature of the lesion but that skin cancer may arise in this area just as it would anywhere on their skin. For that reason, return to clinic was recommended for any acute changes, itching, burning, or bleeding. The patient was educated that benign lesions are not a covered insurance benefit and treatment would be elective and cosmetic. They expressed understanding. Apr, Tinea pedis of both feet (ICD-10 - B35.3) Continues with OTC creams and sprays, call if not resolving with OTC Apr, Onychomycosis (ICD-10 - B35.1) PLAN OF TREATMENT Medication Medication Name Sig Start Date Stop Date Doxycycline Hyclate 100 MG 1 capsule Orally Twice a day for 21 day(s) Apr, Treatment Notes Assessment Notes Clinical Notes Skin cancer screening Patient counseled on signs a nd symptoms of skin cancer including ABCDE's of Melanoma. Patient counseled to wear sunscreen or use sun protective clothing when outdoors. Avoid peak hours of sun between 10-2. Patient instructed to call with any new or changing lesions. History of squamous cell carcinoma NER Actinic keratoses Cryotherapy x [ 2] number of sites. [place] protocol was followed in compliance with [facility] standards. Patient was counseled regarding the indication for treatment (precancerous state for actinic keratosis or cosmetic reasons if done for seborrheic keratoses, acrochordons or warts) as well as, the method and expected results to include compromise of the skin barrier, bleeding, scarring/white area, redness at site, lesion recurrence, and pain. Patient was consented to the risks and benefits of the procedure and gave informed consent. Lesion(s) with locations as indicated in the physical examination were treated. Lesion(s) were treated with 2 cycles of liquid nitrogen with a thaw time of at least ten seconds. Therapy was applied in a pulsed fashion to minimize collateral tissue injury. Patient was instructed to use Vaseline ointment to the area(s) until healed. Patient tolerated the procedure well and left in stable condition. Pain before and after the procedure were assessed to not be significantly different than baseline. Bug bite, initial encounter Patient decl lashayd lyme titer, would like to treat with 21 days of doxy Rosacea Discussed nature of rosacea and factors that can exacerbate the condition including anything that causes flushing/blushing - spicy food, alcohol, sunlight, exercise, and the need to try to limit these factors. Use a mild cleanser on face like Cetaphil liquid cleanser and luke warm water when cleansing. Seborrheic keratoses Benign Lesion Counseling. Th e patient was extensively counseled regarding the benign nature of the lesion but that skin cancer may arise in this area just as it would anywhere on their skin. For that reason, return to clinic was recommended for any acute changes, itching, burning, or bleeding. The patient was educated that benign lesions are not a covered insurance benefit and treatment would be elective and cosmetic. They expressed understanding. Tinea pedis of both feet Continues with OTC creams an d sprays, call if not resolving with OTC Next Appt Details 6 Months Reason:FBSE Hx SCC SCCIS Provider Name:Amanda Morrow, 2021-10-23 07:30:00 AM, [address] [place] [address], , [place], [place], [facility], Follow Up:6 MonthsFBSE Hx SCC SCCIS Insurance Providers Payer Name Payer Address Payer Phone Insured Name Patient Relati onship to Insured Coverage Start Date Coverage End Date NICHOLAS MAYNARD [address] [facility] [phone] RACHEL TOBIN self
--- OUTSIDE RECORDS SUMMARY | 2021-07-20 07:40 | CCD | Continuity of Care Document ---
Author Author Calvin TOBIN M.D. Organization Unknown Address [address] [facility] [address] [place] [address] Phone [phone] Care Team Providers Care Supervisor Operations Name Role Phone Bautista Aburto JR, MD [...] CPT Code Status Date Vaccine Lot # [id number] Given 2019 Pneumovax 23 [id number] Given 07/31/2019 Pneumovax 23 [id number] U-Flu Given 05/28/2018 Influenza,Unspecified 38383 Given 02/10/2014 Tetanus/Diptheria(Td)Toxoids Preservative Free [id number] Given 07/13/2011 Fluvirin Virus Vaccine Vital Signs Date Vital Result Comment 04/18/2021 1:30pm BP Systolic 128 mmHg BP Diastolic 70 mmHg Heart Rate 74 /min Weight 195.00 lb 08/15/2020 8:02am BP Systolic 130 mmHg BP Diastolic 79 mmHg Weight 194.00 lb Results Description No Information Available Procedures Date Code Description Status 04/18/2021 64881 Office/Outpatient Established Mo d MDM 30-39 Min Completed 03/29/2021 [id number] Diabetic Retinal Eye Exam Comple amanuel 03/16/2020 [id number] Colonoscopy Completed 03/09/2020 [id number] Diabetic Retinal Eye Exam Comple amanuel 12/07/2015 [id number] Colonoscopy Completed 01/04/2012 [id number] Colonoscopy Completed 07/30/2008 [id number] Colonoscopy Completed Medical Devices Description No Information Available Encounters Type Date Location Provider Dx Diagnosis Office Visit 04/18/2021 1:30p [facility] Bautista Aburto MD Z01.810 Encounter [...] 08/15/2021 7:40 am - Lab Schedule at [facility] * 08/16/2021 8:00 am - [facility] 04/18/2021 - Bautista Aburto [...]
--- OUTSIDE RECORDS SUMMARY | 2021-07-20 07:41 | CCD ---
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 Name Role Phone JEISON MARSHALL MD Unavailable Unavailable REINDL, JEISON STRICKLAND Unavailable Unavailable REINDL, JEISON STRICKLAND Unavailable Unavailable REINMIKIE, JEISON STRICKLAND Unavailable Unavailable ROLANDO, JEISON STRICKLAND Unavailable Unavailable REINMIKIE, JEISON STRICKLAND Unavailable Unavailable ROLANDO, JEISON STRICKLAND Unavailable Unavailable ROLANDO, JEISON STRICKLAND Unavailable Unavailable ROLANDO, JEISON STRICKLAND Unavailable Unavailable ROLANDO, JEISON STRICKLAND Unavailable Unavailable ROLANDO, JEISON STRICKLAND Unavailable Unavailable ROLANDO, JEISON STRICKLAND Unavailable Unavailable ROALNDO, JEISON STRICKLAND Unavailable Unavailable ROLANDO, JEISON STRICKLAND Unavailable Unavailable ROLANDO, JEISON STRICKLAND Unavailable Unavailable ROLANDO, JEISON STRICKLAND Unavailable Unavailable REINMIKIE, JEISON STRICKLAND Unavailable Unavailable REINIMKIE, JEISON STRICKLAND Unavailable Unavailable REINDL, JEISON STRICKLAND Unavailable Unavailable REINDL, JEISON STRICKLAND Unavailable Unavailable REINMIKIE, JEISON STRICKLAND Unavailable Unavailable REINJEISON DELUNA MD Unavailable Unavailable REINJEISON DELUNA MD Unavailable Unavailable REINMIKIE, JEISON STRICKLAND Unavailable Unavailable ROLANDO, JEISON STRICKLAND Unavailable Unavailable ROLANDO, JEISON STRICKLAND Unavailable Unavailable REINMIKIE, JEISON STRICKLAND Unavailable Unavailable REINMIKIE, JEISON STRICKLAND Unavailable Unavailable ROLANDO, JEISON STRICKLAND Unavailable Unavailable ROLANDO, JEISON STRICKLAND Unavailable Unavailable ROLANDO, JEISON STRICKLAND Unavailable Unavailable JEISON MARSHALL MD Unavailable Unavailable ROLANDO, JEISON STRICKLAND Unavailable Unavailable ROLANDO, JEISON STRICKLAND Unavailable Unavailable ROLANDO, JEISON STRICKLAND Unavailable Unavailable ROLANDO, JEISON STRICKLAND Unavailable Unavailable REINMIKIE, JEISON STRICKLAND Unavailable Unavailable ROLANDO, JEISON STRICKLAND Unavailable Unavailable ROLANDO, JEISON STRICKLAND Unavailable Unavailable JEISON MARSHALL MD Unavailable Unavailable JEISON MARSHALL MD Unavailable Unavailable JEISON MARSHALL MD Unavailable Unavailable BUSHINGER, RAUL Unavailable Unavailable BUSHINGER, RAUL Unavailable Unavailable BUSHINGER, RAUL Unavailable Unavailable BUSHINGER, RAUL Unavailable Unavailable BUSHINGER, RAUL Unavailable Unavailable BUSHINGER, RAUL Unavailable Unavailable BUSHINGER, RAUL Unavailable Unavailable BUSHINGER, RAUL Unavailable Unavailable BUSHINGER, RAUL Unavailable Unavailable BUSHINGER, RAUL Unavailable Unavailable BUSHINGER, RAUL Unavailable Unavailable BUSHINGER, RAUL Unavailable Unavailable BUSHINGER, RAUL Unavailable Unavailable BUSHINGER, RAUL Unavailable Unavailable BUSHINGER, RAUL Unavailable Unavailable BUSHINGER, RAUL Unavailable Unavailable BUSHINGER, RAUL Unavailable Unavailable BUSHINGER, RAUL Unavailable Unavailable BUSHINGER, RAUL Unavailable Unavailable Clover Aburto MD Unavailable Unavailable JulietteClover hendrickson MD Unavailable Unavailable JulietteClover hendrickson MD Unavailable Unavailable LamonteClover hendrickson MD Unavailable Unavailable LamonteClover hendrickson MD Unavailable Unavailable JulietteClover hendrickson MD Unavailable Unavailable JulietteClover hendrickson MD Unavailable Unavailable JulietteClover hendrickson MD Unavailable Unavailable JulietteClover hendrickson MD Unavailable Unavailable LamonteClover hendrickson MD Unavailable Unavailable LamonteClover hendrickson MD Unavailable Unavailable JulietteClover hendrickson MD Unavailable Unavailable LamonteClover hendrickson MD Unavailable Unavailable Clover Aburto MD Unavailable Unavailable LamonteClover hendrickson MD Unavailable Unavailable LamonteClover hendrickson MD Unavailable Unavailable LamonteClover hendrickson MD Unavailable Unavailable JulietteClover hendrickson MD Unavailable Unavailable JulietteClover hendrickson MD Unavailable Unavailable LamonteClover hendrickson MD Unavailable Unavailable JulietteClover hendrickson MD Unavailable Unavailable LamonteClover hendrickson MD Unavailable Unavailable LamonteClover hendrickson MD Unavailable Unavailable LamonteClover hendrickson MD Unavailable Unavailable JulietteClover hendrickson MD Unavailable Unavailable LamonteClover hendrickson MD Unavailable Unavailable LamonteClover hendrickson MD Unavailable Unavailable JulietteClover hendrickson MD Unavailable Unavailable JulietteClover hendrickson MD Unavailable Unavailable LamonteClover hendrickson MD Unavailable Unavailable JulietteClover hendrickson MD Unavailable Unavailable LamonteClover hendrickson MD Unavailable Unavailable LamonteClover hendrickson MD Unavailable Unavailable JulietteClover hendrickson MD Unavailable Unavailable LamonteClover hendrickson MD Unavailable Unavailable LamonteClover hendrickson MD Unavailable Unavailable JulietteClover hendrickson MD Unavailable Unavailable LamonteClover hendrickson MD Unavailable Unavailable LamonteClover hendrickson MD Unavailable Unavailable JulietteClover hendrickson MD Unavailable Unavailable LamonteClover hendrickson MD Unavailable Unavailable LamonteClover MD Unavailable Unavailable JulietteClover MD Unavailable Unavailable LamonteClover MD Unavailable Unavailable JulietteClover MD Unavailable Unavailable JulietteClover MD Unavailable Unavailable JulietteClover MD Unavailable Unavailable LamonteClover MD Unavailable Unavailable JulietteClover MD Unavailable Unavailable LamonteClover MD Unavailable Unavailable LamonteClover MD Unavailable Unavailable LamonteClover MD Unavailable Unavailable LamonteClover MD Unavailable Unavailable LamonteClover MD Unavailable Unavailable JulietteClover MD Unavailable Unavailable LamonteClover MD Unavailable Unavailable JulietteClover MD Unavailable Unavailable LamonteClover MD Unavailable Unavailable LamonteClover MD Unavailable Unavailable LamonteClover MD Unavailable Unavailable JulietteClover MD Unavailable Unavailable JulietteClover MD Unavailable Unavailable LamonteClover hendrickson MD Unavailable Unavailable JulietteClover MD Unavailable Unavailable JulietteClover MD Unavailable Unavailable LamonteClover hendrickson MD Unavailable Unavailable LamonteClover MD Unavailable Unavailable JulietteClover hendrickson MD Unavailable Unavailable LamonteClover hendrickson MD Unavailable Unavailable JulietteClover hendrickson MD Unavailable Unavailable JulietteClover hendrickson MD Unavailable Unavailable LamonteClover hendrickson MD Unavailable Unavailable LamonteClover hendrickson MD Unavailable Unavailable JulietteClover hendrickson MD Unavailable Unavailable JulietteClover hendrickson MD Unavailable Unavailable LamonteClover hendrickson MD Unavailable Unavailable JulietteClover hendrickson MD Unavailable Unavailable JulietteClover hendrickson MD Unavailable Unavailable JulietteClover hendrickson MD Unavailable Unavailable JulietteClover hendrickson MD Unavailable Unavailable LamonteClvoer MD Unavailable Unavailable JulietteColver hendrickson MD Unavailable Unavailable JulietteClover hendrickson MD Unavailable Unavailable JulietteClover hendrickson MD Unavailable Unavailable LamonteClover MD Unavailable Unavailable AlmonteClover MD Unavailable Unavailable JulietteClover MD Unavailable Unavailable HUMBERTO, ISAIAH PA Unavailable Unavailable HUMBERTO, ISAIAH PA Unavailable Unavailable HUMBERTO, ISAIAH PA Unavailable Unavailable HUMBERTO, ISAIAH PA Unavailable Unavailable HUMBERTO, ISAIAH PA Unavailable Unavailable HUMBERTO, ISAIAH PA Unavailable Unavailable HUMBERTO, ISAIAH PA Unavailable Unavailable HUMBERTO, ISAIAH PA Unavailable Unavailable HUMBERTO, ISAIAH PA Unavailable Unavailable HUMBERTO, ISAIAH PA Unavailable Unavailable HUMBERTO, ISAIAH PA Unavailable Unavailable HUMBERTO, ISAIAH PA Unavailable Unavailable HUMBERTO, ISAIAH PA Unavailable Unavailable HUMBERTO, ISAIAH PA Unavailable Unavailable HUMBERTO, ISAIAH PA Unavailable Unavailable HUMBERTO, ISAIAH PA Unavailable Unavailable HUMBERTO, ISAIAH PA Unavailable Unavailable HUMBERTO, ISAIAH PA Unavailable Unavailable HUMBERTO, ISAIAH PA Unavailable Unavailable HUMBERTO, ISAIAH PA Unavailable Unavailable HUMBERTO, ISAIAH PA Unavailable Unavailable HUMBERTO, ISAIAH PA Unavailable Unavailable HUMBERTO, ISAIAH PA Unavailable Unavailable HUMBERTO, ISAIAH PA Unavailable Unavailable HUMBERTO, ISAIAH PA Unavailable Unavailable HUMBERTO, ISAIAH PA Unavailable Unavailable HUMBERTO, ISAIAH PA Unavailable Unavailable HUMBERTO, ISAIAH PA Unavailable Unavailable HUMBERTO, ISAIAH PA Unavailable Unavailable HUMBERTO, ISAIAH PA Unavailable Unavailable HUMBERTO, ISAIAH PA Unavailable Unavailable HUMBERTO, ISAIAH PA Unavailable Unavailable HUMBERTO, ISAIAH PA Unavailable Unavailable HUMBERTO, ISAIAH PA Unavailable Unavailable HUMBERTO, ISAIAH PA Unavailable Unavailable HUMBERTO, ISAIAH PA Unavailable Unavailable AGUILERA, G EDWARD RPA Unavailable Unavailable AGUILERA, G EDWARD RPA Unavailable Unavailable AGUILERA, G EDWARD RPA Unavailable Unavailable AGUILERA, G EDWARD RPA Unavailable Unavailable AGUILERA, G EDWARD RPA Unavailable Unavailable AGUILERA, G EDWARD RPA Unavailable Unavailable AGUILERA, G EDWARD RPA Unavailable Unavailable AGUILERA, G EDWARD RPA Unavailable Unavailable AGUILERA, G EDWARD RPA Unavailable Unavailable AGUILERA, G EDWARD RPA Unavailable Unavailable AGUILERA, G EDWARD RPA Unavailable Unavailable AGUILERA, G EDWARD RPA Unavailable Unavailable AGUILERA, G EDWARD RPA Unavailable Unavailable AGUILERA, G EDWARD RPA Unavailable Unavailable AGUILERA, G EDWARD RPA Unavailable Unavailable AGUILERA, G EDWARD RPA Unavailable Unavailable AGUILERA, G EDWARD RPA Unavailable Unavailable AGUILERA, G EDWARD RPA Unavailable Unavailable AGUILERA, G EDWARD RPA Unavailable Unavailable AGUILERA, G EDWARD RPA Unavailable Unavailable AGUILERA, G EDWARD RPA Unavailable Unavailable AGUILERA, G EDWARD RPA Unavailable Unavailable AGUILERA, G EDWARD RPA Unavailable Unavailable AGUILERA, G EDWARD RPA Unavailable Unavailable AGUILERA, G EDWARD RPA Unavailable Unavailable AGUILERA, G EDWARD RPA Unavailable Unavailable AGUILERA, G EDWARD RPA Unavailable Unavailable AGUILERA, G EDWARD RPA Unavailable Unavailable AGUILERA, G EDWARD RPA Unavailable Unavailable AGUILERA, G EDWARD RPA Unavailable Unavailable AGUILERA, G EDWARD RPA Unavailable Unavailable AGUILERA, G EDWARD RPA Unavailable Unavailable AGUILERA, G EDWARD RPA Unavailable Unavailable AGUILERA, G EDWARD RPA Unavailable Unavailable AGUILERA, G EDWARD RPA Unavailable Unavailable AGUILERA, G EDWARD RPA Unavailable Unavailable AGUILERA, G EDWARD RPA Unavailable Unavailable Triston SELBY MD Unavailable Unavailable Triston SELBY MD Unavailable Unavailable Triston SELBY MD Unavailable Unavailable Triston SELBY MD Unavailable Unavailable Triston SELBY MD Unavailable Unavailable Triston SELBY MD Unavailable Unavailable Triston SELBY MD Unavailable Unavailable Triston SELBY MD Unavailable Unavailable Triston SELBY MD Unavailable Unavailable Triston SELBY MD Unavailable Unavailable Triston SELBY MD Unavailable Unavailable Triston SELBY MD Unavailable Unavailable Triston SELBY MD Unavailable Unavailable Triston SELBY MD Unavailable Unavailable Triston SELBY MD Unavailable Unavailable Triston SELBY MD Unavailable Unavailable Triston SELBY MD Unavailable Unavailable Triston SELBY MD Unavailable Unavailable Triston SELBY MD Unavailable Unavailable Triston SELBY MD Unavailable Unavailable Triston SELBY MD Unavailable Unavailable Triston SELBY MD Unavailable Unavailable Triston SELBY MD Unavailable Unavailable Triston SELBY MD Unavailable Unavailable Triston SELBY MD Unavailable Unavailable Triston SELBY MD Unavailable Unavailable Triston SELBY MD Unavailable Unavailable Triston SELBY MD Unavailable Unavailable Triston SELBY MD Unavailable Unavailable Triston SELBY MD Unavailable Unavailable Triston SELBY MD Unavailable Unavailable Triston SELBY MD Unavailable Unavailable Triston SELBY MD Unavailable Unavailable Triston SELBY MD Unavailable Unavailable Triston SELBY MD Unavailable Unavailable Triston SELBY MD Unavailable Unavailable Triston SELBY MD Unavailable Unavailable Triston SELBY MD Unavailable Unavailable Triston SELBY MD Unavailable Unavailable Triston SELBY MD Unavailable Unavailable Triston SELBY MD Unavailable Unavailable Triston SELBY MD Unavailable Unavailable Triston SELBY MD Unavailable Unavailable Triston SELBY MD Unavailable Unavailable Triston SELBY MD Unavailable Unavailable Triston SELBY MD Unavailable Unavailable Triston SELBY MD Unavailable Unavailable Triston SELBY MD Unavailable Unavailable Triston SELBY MD Unavailable Unavailable Triston SELBY MD Unavailable Unavailable Triston SELBY MD Unavailable Unavailable Triston SELBY MD Unavailable Unavailable Triston SELBY MD Unavailable Unavailable Triston SELBY MD Unavailable Unavailable Triston SELBY MD Unavailable Unavailable Triston SELBY MD Unavailable Unavailable Triston SELBY MD Unavailable Unavailable Triston SELBY MD Unavailable Unavailable Triston SELBY MD Unavailable Unavailable Triston SELBY MD Unavailable Unavailable Triston SELBY MD Unavailable Unavailable rTiston SELBY MD Unavailable Unavailable Triston SELBY MD Unavailable Unavailable Triston SELBY MD Unavailable Unavailable Triston SELBY MD Unavailable Unavailable Triston SELYB MD Unavailable Unavailable Triston SELBY MD Unavailable Unavailable Triston SELBY MD Unavailable Unavailable Triston SELBY MD Unavailable Unavailable Triston SELBY MD Unavailable Unavailable Triston SELBY MD Unavailable Unavailable Triston SELBY MD Unavailable Unavailable Angel, L Maite PA Unavailable Unavailable Angel, L Maite PA Unavailable Unavailable Angel, L Maite PA Unavailable Unavailable Angel, L Maite PA Unavailable Unavailable Angel, L Maite PA Unavailable Unavailable Angel, L Maite PA Unavailable Unavailable Angel, L Maite PA Unavailable Unavailable Angel, L Maite PA Unavailable Unavailable Angel, L Maite PA Unavailable Unavailable Angel, L Maite PA Unavailable Unavailable Angel, L Maite PA Unavailable Unavailable Angel, L Maite PA Unavailable Unavailable Angel, L Maite PA Unavailable Unavailable Angel, L Maite PA Unavailable Unavailable Angel, L Maite PA Unavailable Unavailable Angel, L Maite PA Unavailable Unavailable Angel, L Maite PA Unavailable Unavailable Angel, L Maite PA Unavailable Unavailable Angel, L Maite PA Unavailable Unavailable Angel, L Maite PA Unavailable Unavailable Angel, L Maite PA Unavailable Unavailable Angel, L Maite PA Unavailable Unavailable Angel, L Maite PA Unavailable Unavailable Angel, L Maite PA Unavailable Unavailable Angel, L Maite PA Unavailable Unavailable Angel, L Maite PA Unavailable Unavailable Angel, L Maite PA Unavailable Unavailable Angel, L Maite PA Unavailable Unavailable Angel, L Maite PA Unavailable Unavailable Angel, L Maite PA Unavailable Unavailable Angel, L Maite PA Unavailable Unavailable Angel, L Maite PA Unavailable Unavailable Angel, L Maite PA Unavailable Unavailable Angel, L Maite PA Unavailable Unavailable Angel, L Maite PA Unavailable Unavailable Angel, L Maite PA Unavailable Unavailable Angel, L Maite PA Unavailable Unavailable Angel, L Maite PA Unavailable Unavailable Angel, L Maite PA Unavailable Unavailable [place] Schafer, Flores Harding MD, FACS Unavailable Unavailable [place] Schafer, Flores Harding MD, FACS Unavailable Unavailable [place] Schafer, Flores Harding MD, FACS Unavailable Unavailable [place] Schafer, Flores Harding MD, FACS Unavailable Unavailable [place] Schafer, Flores Harding MD, FACS Unavailable Unavailable [place] Schafer, Flores Harding MD, FACS Unavailable Unavailable [place] Schafer, Flores Harding MD, FACS Unavailable Unavailable [place] Schafer, Flores Harding MD, FACS Unavailable Unavailable [place] Schafer, Flores Harding MD, FACS Unavailable Unavailable [place] Schafer, Flores Harding MD, FACS Unavailable Unavailable [place] Schafer, Flores Harding MD, FACS Unavailable Unavailable [place] Schafer, Flores Harding MD, FACS Unavailable Unavailable [place] Schafer, Flores Harding MD, FACS Unavailable Unavailable [place] Schafer, Flores Harding MD, FACS Unavailable Unavailable [place] Schafer, Flores Harding MD, FACS Unavailable Unavailable [place] Schafer, Flores Harding MD, FACS Unavailable Unavailable [place] Schafer, Flores Harding MD, FACS Unavailable Unavailable [place] Schafer, Flores Harding MD, FACS Unavailable Unavailable [place] Schafer, Flores Harding MD, FACS Unavailable Unavailable [place] Schafer, Flores Harding MD, FACS Unavailable Unavailable [place] Schafer, Flores Harding MD, FACS Unavailable Unavailable [place] Schafer, Flores Harding MD, FACS Unavailable Unavailable [place] Schafer, Flores Harding MD, FACS Unavailable Unavailable [place] Schafer, Flores Harding MD, FACS Unavailable Unavailable [place] Schafer, Flores Harding MD, FACS Unavailable Unavailable [place] Schafer, Flores Harding MD, FACS Unavailable Unavailable [place] Schafer, Flores Harding MD, FACS Unavailable Unavailable [place] Schafer, Flores Harding MD, FACS Unavailable Unavailable [place] Schafer, Flores Harding MD, FACS Unavailable Unavailable [place] Schafer, Flores Harding MD, FACS Unavailable Unavailable [place] Schafer, Flores Harding MD, FACS Unavailable Unavailable [place] Schafer, Flores Harding MD, FACS Unavailable Unavailable [place] Schafer, Flores Harding MD, FACS Unavailable Unavailable [place] Schafer, Flores Harding MD, FACS Unavailable Unavailable [place] Schafer, Flores Harding MD, FACS Unavailable Unavailable [place] Schafer, Flores Harding MD, FACS Unavailable Unavailable [place] Schafer, Flores Harding MD, FACS Unavailable Unavailable [place] Schafer, Flores Harding MD, FACS Unavailable Unavailable [place] Schafer, Flores Harding MD, FACS Unavailable Unavailable LEONEL, A ILENE DO Unavailable Unavailable LEONEL, A ILENE DO Unavailable Unavailable LEONEL, A ILENE DO Unavailable Unavailable LEONEL, A ILENE DO Unavailable Unavailable LEONEL, A ILENE DO Unavailable Unavailable LEONEL, A ILENE DO Unavailable Unavailable LEONEL, A ILENE DO Unavailable Unavailable LEONEL, A ILENE DO Unavailable Unavailable LEONEL, A ILENE DO Unavailable Unavailable LEONEL, A ILENE DO Unavailable Unavailable LEONEL, A ILENE DO Unavailable Unavailable LEONEL, A ILENE DO Unavailable Unavailable LEONEL, A ILENE DO Unavailable Unavailable LEONEL, A ILENE DO Unavailable Unavailable LEONEL, A ILENE DO Unavailable Unavailable LEONEL, A ILENE DO Unavailable Unavailable LEONEL, A ILENE DO Unavailable Unavailable LEONEL, A ILENE DO Unavailable Unavailable LEONEL, A ILENE DO Unavailable Unavailable LEONEL, A ILENE DO Unavailable Unavailable LEONEL, A ILENE DO Unavailable Unavailable LEONEL, A ILENE DO Unavailable Unavailable LEONEL, A ILENE DO Unavailable Unavailable Re-disclosure Warning The records that you are about to access may contain information from federally-assisted alcohol or drug abuse programs. If such information is present, then the following federally mandated warning applies: This information has been disclosed to you from records protected by federal confidentiality rules (42 CFR part 2). The federal rules prohibit you from making any further disclosure of this information unless further disclosure is expressly permitted by the written consent of the person to whom it pertains or as otherwise permitted by 42 CFR part 2. A general authorization for the release of medical or other information is NOT sufficient for this purpose. The Federal rules restrict any use of the information to criminally investigate or prosecute any alcohol or drug abuse patient.The records that you are about to access may contain highly sensitive health information, the redisclosure of which is protected by Article 27-F of the [place] State Public Health law. If you continue you may have access to information: Regarding HIV / AIDS; Provided by facilities licensed or operated by the [facility] Office of Mental Health; or Provided by the [facility] Office for People With Developmental Disabilities. If such information is present, then the following [facility] mandated warning applies: This information has been disclosed to you from confidential records which are protected by state law. State law prohibits you from making any further disclosure of this information without the specific written consent of the person to whom it pertains, or as otherwise permitted by law. Any unauthorized further disclosure in violation of state law may result in a fine or mcfp sentence or both. A general authorization for the release of medical or other information is NOT sufficient authorization for further disc losure. Allergies and Adverse Reactions Type Description Substance Reaction Status Data Source(s ) Allergy to substance No Known Allergies No known allergies (situation ) MARI (Jeison Schafer MD [facility]) Allergy to substance No Known Allergies No known allergies (situation ) MARI (Jeison Schafer MD [facility]) Allergy to substance No Known Allergies No known allergies (situation ) MARI (Jeison Schafer MD [facility]) Family History Family Member Name Family Member Gender Family Member Status Date o f Status Description Data Source(s) Unknown Male Problem [facility] ([facility], ) Unknown Male Problem [facility] ([facility] Unknown Male Problem [facility] ([facility] ) Unknown Female Problem MEDENT ([facility]) Encounters Encounter Providers Location Date Indications Data Source(s ) Outpatient Attender: ISAIAH johnson 07/17/2021 01:35:00 PM EST [facility] ([facility]) Office Visit Attender: RAUL GARCIA [place] [facility] 05/17/2021 09: 30:00 AM EDT [facility] ([facility]) Office Visit Attender: CRUZ SELBY MD [place] [facility] 01:30:00 PM EDT [facility] ([facility]) Outpatient Attender: KIM AGUILERA RPA 04/30 07:04:54 AM EDT - 04/30/2021 07:23:12 AM EDT [facility] ([facility] ) Outpatient [address] [id number] 04/24/2021 12:00:00 AM EDT eCW1 ([facility]) Outpatient Attender: Bautista High 0 04/18/2021 01:30:00 PM EDT [facility] ([facility] ) Outpatient Attender: JEISON Carrera/Shahla/Ezequiel/Margarita deluna 04/10/2021 10:30:00 AM EDT [facility] Office Visit Attender: CRUZ SELBY MD [place] [facility] 07:50:00 AM EDT [facility] ([facility]) Outpatient Attender: Maite Angel PAReferrer: Beau [email or web address] 12/29/2020 03:01:19 PM EDT - 12/29/2020 03:56:43 PM EDT [facility] Outpatient Referrer: Maite NEWMANDIANE-SJPLuisDIANE 02:39:28 PM EDT [facility] <td ID="encounterTypeDescriptionID0">Cat aract Evaluation</td><td>Ilene Roblero DO</td><td>Jeison Gusman MD [facility]</td><td>12/01/2020</td><td>2:30PM</td><td>3:24PM</td><td><content ID="encounterDiagnosisID0-0">Cataract Senile Nuclear</content>, <content ID="encounterDiagnosisID0-1">Cataract Senile Posterior Subcapsular Polar</content>, <content ID="encounterDiagnosisID0-2">Dry Eye Syndrome</content>, <content ID="encounterDiagnosisID0-3">Chorioretinal Scar</content>, <content ID="encounterDiagnosisID0-4">Vitreous Disorders Degeneration</content></td>Outpatient Attender: ILENE Aldridge MD [facility] 12/01/2020 02:30:00 PM EDT - 12/01/2020 03:24:00 PM ED T Chorioretinal ScarCataract Senile Posterior Subcapsular PolarChorioretinal ScarCataract Senile Posterior Subcapsular PolarChorioretinal ScarCataract Senile Posterior Subcapsular PolarCataract Senile NuclearCataract Senile Nuclear Cataract Senile NuclearVitreous Disorders DegenerationVitreous Disorders DegenerationVitreous Disorders DegenerationDry Eye SyndromeDry Eye SyndromeDry Eye Syndrome MARI (Jeison Schafer MD [facility]) 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 [address] 10/19/2020 12:00:00 AM EST eCW1 ([facility]) [facility] Dermatology [address] [place] [address] 10/19/2020 12:00:00 AM EST eCW1 ([facility]) Outpatient<td ID="encounterTypeDescripti onID1">1 Year Follow-Up</td><td>Jeison Gusman MD, FACS</td><td>Jeison Gusman MD [facility]</td><td>09/12/2020</td><td>7:42AM</td><td>8:23AM</td><td><content ID="encounterDiagnosisID1-0">Dry Eye Syndrome Both Eyes</content>, <content ID="encounterDiagnosisID1-1">Blepharitis Squamous</content>, <content ID="encounterDiagnosisID1-2">Vitreous Disorders Degeneration</content>, <content ID="encounterDiagnosisID1-3">Cataract Senile Posterior Subcapsular Polar</content>, <content ID="encounterDiagnosisID1-4">Cataract Senile Nuclear</content></td> Attender: Jeison Schafer MD, FACS Jeison Major [facility] 09/12/2020 07:42:00 AM EST - 09/12/2020 08:23:00 AM ES T Cataract Senile NuclearCataract Senile Posterior Subcapsular PolarCataract Senile NuclearCataract Senile Posterior Subcapsular PolarCataract Senile NuclearCataract Senile Posterior Subcapsular PolarVitreous Disorders DegenerationBlepharitis SquamousVitreous Disorders DegenerationBlepharitis SquamousVitreous Disorders DegenerationBlepharitis SquamousDry Eye Syndrome Both EyesDry Eye Syndrome Both EyesDry Eye Syndrome Both Eyes MARI (Jeison Schafer MD [facility]) Cataract Senile Nuclear Cataract Senile Posterior Subcapsular Po lar Cataract Senile Nuclear Cataract Senile Posterior Subcapsular Po lar Cataract Senile Nuclear Cataract Senile Posterior Subcapsular Po lar 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 Syndrome Both Eyes Dry Eye Syndrome Both Eyes Outpatient [address] [facility] [address] 08/31/2020 12:00:00 AM EST eCW1 ([facility]) Outpatient [address] [facility] [address] 08/26/2020 12:00:00 AM EST eCW1 ([facility]) Outpatient Referrer: Maite PETERSONSJPEMILY 12:00:00 AM EDT [facility] Outpatient Attender: Maite PANTOJA-SJPLuisDIANE 03:54:57 PM EDT - 06/01/2020 05:05:11 PM EDT [facility] Immunizations Vaccine Date Status Description Data Source(s) COVID-19 VACCINE Moderna 06/06/2021 12:00:00 AM EDT completed [facility] Vaccine Series Complete: YESThis Data wa s Submitted to [facility] Via Appe[facility]. COVID-19 VACCINE Moderna 09/25/2020 12:00:00 AM EST completed [facility] Vaccine Series Complete: YESThis Data wa s Submitted to [facility] Via [facility]. COVID-19 VACCINE Moderna 08/28/2020 12:00:00 AM EST completed [facility] Vaccine Series Complete: NOThis Data was Submitted to [facility] Via [facility]. INFLUENZA VIRUS VACCINE QUADRIVAL SPLIT 2019-(65 YR UP)/PF 05/25/2020 12:00:00 AM EDT completed [facility] Medications Medication Brand Name Start Date Product Form Dose Route Admi nistrative Instructions Pharmacy Instructions Status Indications Reaction Description Data Source(s) cefdinir 300 MG Oral Capsule Cefdinir 07/17/2021 12:00:00 AM EST ORAL active MEDENT ([facility]) 60 ACTUAT Albuterol 0.09 MG/ACTUAT Metered Dose Inhaler Albu terol Sulfate HFA 07/17/2021 12:00:00 AM EST RESPIRATORY active MEDENT ([facility], [facility]) doxycycline hyclate 100 MG Oral Tablet Doxycycline Hyc late 100 MG Doxycycline Hyclate 100 MG 04/24/2021 12:00:00 AM EDT 1.0 {capsule} active Doxycycline Hyclate 100 MG eCW1 ([facility]) prednisolone acetate 10 MG/ML Ophthalmic Suspension [Pred Fo rte] Pred Forte 04/12/2021 12:00:00 AM EDT OPHTHALMIC active MEDENT ([facility]) Ofloxacin 3 MG/ML Ophthalmic Solution [Ocuflox] Ocuflox 04/12/2021 12:00:00 AM EDT OPHTHALMIC active MEDENT ([facility]) POLYETHYLENE GLYCOL 3350 142 MG/ML Oral Solution [Miralax] M iralax 04/10/2021 12:00:00 AM EDT active M EDENT ([facility], ) Magnesium Hydroxide 80 MG/ML Oral Suspension Milk Of Magnesi a 04/10/2021 12:00:00 AM EDT ORAL active M EDENT ([facility], ) Rosuvastatin calcium 40 MG Oral Tablet rosuvastatin (C RESTOR) 40 MG tablet rosuvastatin (CRESTOR) 40 MG tablet 12/29/2020 12:00:00 AM EDT 40 mg Oral active Mixed hyperlipidemia Take 1 tablet (40 mg total) by mouth nightly [facility] Mixed hyperlipidemia Fluorouracil 50 MG/ML Topical Cream [Efudex] Efudex 5 % Efud ex 5 % 10/19/2020 12:00:00 AM EST suspended Efude x 5 % eCW1 ([facility]) Fluorouracil 50 MG/ML Topical Cream [Efudex] Efudex 5 % Efud ex 5 % 10/19/2020 12:00:00 AM EST active Efudex 5 % eCW1 ([facility]) Covid-19 vaccine, Unspecified 08/28/2020 12:00:00 AM EST completed MEDENT ([place] [facility]) Medication administered onsite Rosuvastatin calcium 40 MG Oral Tablet rosuvastatin (C RESTOR) 40 MG tablet rosuvastatin (CRESTOR) 40 MG tablet 07/13/2020 12:00:00 AM EST aborted TAKE 1 TABLET BY MOUTH NIGHTLY [facility] Insurance Providers Payer name Policy type / Coverage type Policy ID Covered republican ID Covered republican's relationship to orta Policy Orta Plan Information Ghi/Emblem HL[facility]pr[facility] [id number] Self [id number] Ghi/Emblem HLTH (pr) [facility] [id number] Self [id number] Ghi/Emblem HLTH (pr) [facility] [id number] Self [id number] Ghi/Emblem HLTH (pr) [facility] Part B [id number] Self [id number] [facility] Health Maintenance Organization ([facility]) [id number] Self [facility] Health Maintenance Organization ([facility]) [id number] Self [id number] [facility] Part B [id number] Self [id number] [facility] [id number] [id number] Self [id number] [facility] [place] [facility] Part B [id number] Self Z [id number] [place] [facility] Part B [id number] Self Z [id number] [facility] [place] [employer] Part B [id number] Self Z [id number] [place] [facility] Part B [id number] Self Z [id number] [facility] [employer] Commercial [id number] Self [id number] [facility] [employer] Commercial [id number] Self [id number] [employer] Medigap Part B [id number] Self [id number] [employer] Commercial [id number] Self [employer]BS [place] PPO 302/307 [id number] SP [id number] [place] Med[employer]ap Part B [id number] Self V [id number] [place] [employer] Part B [id number] [id number] Self V [id number] [place] Med[employer] Part B [id number] Self V [id number] [facility] Part B [id number] Self V [id number] MVP (pr) Commercial [id number]. 0 Self [id number] MVP Health Maintenance Organization (HMO) [id number] 0 [id number] Self [id number] [employer] Health Maintenance Organization (HMO) [id number] 0 [id number] Self [id number] [employer] Commercial [id number] Self [id number] MVP (pr) Commercial [id number]. 0 Self [id number] MVP (pr) Commercial [id number]. 0 Self [id number] MVP (pr) Commercial [id number]. 0 Self [id number] MVP (pr) Commercial [id number]. 0 Self [id number] [employer] [facility] [id number] 80 [id number] MVP [id number] MVP [id number] Johanna [id number] [employer] Commercial Insurance Co. [id number] Self [id number] ANSI-Commercial [id number] [facility] HE[facility] CARE [id number] SP [id number] SELF PAY ONLY [id number] SP [id number] [facility] [id number] S 8 [id number] ANSI-Commercial [id number] ANSI-Commercial [id number] ANSI-Commercial [id number] ANSI-Commercial [id number] [facility] Part B [id number] Self [id number] [facility] Health Maintenance Organization (O) [id number] 0 [id number] Self [id number] [facility] Gold Commercial [id number] 5.0 Self [id number] ANSI-Commercial [id number] [facility] [id number] SP [id number] BC/BS Of [facility] Part B [id number] Self V [id number] [facility] Health Maintenance Organization (HMO) [id number] 0 [id number] Self [id number] [facility] O [id number] S 80 [id number] [facility] [id number] SP [id number] [facility] [id number] SP [id number] [facility] Health Care Health Maintenance Organization (HMO) [id number] Self Problems, Conditions, and Diagnoses Code Display Name Description Problem Type Effective Dates Data Source(s) G47.33 Obstructive sleep apnea (adult) (pediatr ic) Obstructive sleep apnea (adult) (pediatr Diagnosis 06/01/2020 03:54:57 PM EDT [facility] Z82.49 Family history of ischemic h eart disease and other diseases of the circulatory system Family history of ischemic heart disease Diagnosis 06/01/2020 03:54:57 PM EDT [facility] R03.0 Elevated blood-pressure reading, without diagnosis of hypertension Elevated blood-pressure reading, without Diagnosis 06/01/2020 03:54:57 PM EDT [facility] E78.2 Mixed hyperlipidemia Mixed hyperlipidemia Diagnosis 06/01/2020 03:54:57 PM EDT [facility] I71.2 Thoracic aortic aneurysm, without ruptur e Thoracic aortic aneurysm, without ruptur Diagnosis 06/01/2020 03:54:57 PM EDT [facility] Z96.1 History of phacoemulsificati on of cataract with implantation of intraocular lens History of phacoemulsification of catara ct with implantation of intraocular lens Problem 05/05/2021 12:00:00 AM EDT MEDENT ([facility]) Z85.89 [id number] History of squamous cell carcinoma Prob kayla 04/18/2021 12:00:00 AM EDT eCW1 ([facility]) [id number] Age-related cataract Age-related cataract Problem 03/27/2021 12:00:00 AM EDT MEDENT ([facility]) [id number] Sleep apnea Sleep apnea Problem 03/27/2021 12:00:00 AM EDT MEDENT ([facility]) 366.16 Cataract Senile Nuclear Cataract Senile Nuclear Proble m 09/12/2020 12:00:00 AM EST MARI (Jeison Schafer MD [facility]) 366.14 Cataract Senile Posterior Subcapsular Po lar Cataract Senile Posterior Subcapsular Polar Problem 09/12/2020 12:00:00 AM EST MARI (Balaji Schafer MD [facility]) 366.14 Cataract Senile Posterior Subcapsular Po lar Cataract Senile Posterior Subcapsular Polar Problem 09/12/2020 12:00:00 AM EST MARI (Balaji Schafer MD [facility]) 366.16 Cataract Senile Nuclear Cataract Senile Nuclear Proble m 09/12/2020 12:00:00 AM EST MARI (Jeison Schafer MD [facility]) 366.14 Cataract Senile Posterior Subcapsular Po lar Cataract Senile Posterior Subcapsular Polar Problem 09/12/2020 12:00:00 AM EST MARI (Balaji Schafer MD [facility]) 366.16 Cataract Senile Nuclear Cataract Senile Nuclear Proble m 09/12/2020 12:00:00 AM EST MARI (Jeison Schafer MD [facility]) 379.23 Vitreous Hemorrhage Vitreous Hemorrhage Problem 0 03/09/2020 12:00:00 AM EDT - 09/12/2020 12:00:00 AM EST MARI (Jeison Schafer MD [facility]) 379.23 Vitreous Hemorrhage Vitreous Hemorrhage Problem 0 03/09/2020 12:00:00 AM EDT - 09/12/2020 12:00:00 AM EST MARI (Jeison Schafer MD [facility]) 379.23 Vitreous Hemorrhage Vitreous Hemorrhage Problem 0 03/09/2020 12:00:00 AM EDT - 09/12/2020 12:00:00 AM EST MARI (Jeison Schafer MD [facility]) Surgeries/Procedures Procedure Description Date Indications Data Source(s) OFFICE OUTPATIENT NEW 30 MINUTES 07/17/2021 12:00:00 A M EST MEDENT ([facility], [facility]) Extracapsular Cat REM W/Insert IOL,Manual/Phacoemulsificatio n OS 05/04/2021 12:00:00 AM EDT [facility] OFF[facility] OUTPATIENT VISIT 25 MINUTES 04/18/2021 12:00:00 AM EDT MEDENT ([facility]) OFFICE OUTPATIENT NEW 30 MINUTES 04/10/2021 12:00:00 A M EDT MEDENT ([facility], ) Diabetic Retinal Eye Exam 03/29/2021 12:00:00 AM EDT MEDENT ([facility]) Exam Comprehensive, New PT 03/28/2021 12:00:00 AM EDT MEDENT ([facility]) IOL Master 03/28/2021 12:00:00 AM EDT M EDENT ([facility]) Intermediate Eye Exam Established Patient Intermediate Eye Exam Established Patient 12/01/2020 12:00:00 AM EDT MARI (Balaji Schafer MD [facility]) No surgical / procedural history No surgical / procedural hi story 12/01/2020 12:00:00 AM EDT MARI (Jeison Schafer MD [facility]) Med: Derm 1% Lidocaine with Epinephrine Injection Intr adermally to marked areas 10/19/2020 12:00:00 AM EST eCW1 ([facility]) Repair of retina for retinal detachment (procedure) Hi story of repair of retinal detachment of the left eye PPV by Dr. Alcazar @ [facility] 04/04/2020 09/12/2020 12:00:00 AM EST MARI (Jeison Schafer MD [facility]) Intermediate Eye Exam Established Patient Intermediate Eye Exam Established Patient 09/12/2020 12:00:00 AM EST MARI (Balaji Schafer MD [facility]) BLOOD COUNT COMPLETE AUTO&AUTO DIFRNTL WBC COUNT <td>C BC AND DIFFERENTIAL</td><td>Routine</td><td>08/15/2020</td><td></td><td> </td> 08/15/2020 12:00:00 AM EST [facility] HEPATIC FUNCTION PANEL <td>HEPATIC FUNCTION PANEL</td><td>Routine</td><td>08/15/2020</td><td></td><td> </td> 08/15/2020 12:00:00 AM EST [facility] LIPID PANEL <td>LIPID PANEL</td><td>Rout ine</td><td>08/15/2020</td><td></td><td> </td> 08/15/2020 12:00:00 AM EST [facility] BASIC METABOLIC PANEL CALCIUM TOTAL <td>BASIC METABOLI C PANEL</td><td>Routine</td><td>08/15/2020</td><td></td><td> </td> 08/15/2020 12:00:00 AM EST [facility] Results ID Date Data Source [id number] 07/15/2021 11:15:00 AM EST [facility] Name Value Range Interpretation Code Description Data Chio rce(s) Supporting Document(s) SARS-CoV-2 (COVID-19) RNA [Presence] in Respiratory specimen by MARI with probe detection Not Detected [facility] This lab was ordered by [facility] and reported by [facility]. ID Date Data Source [id number] 04/30/2021 07:30:00 AM EDT [facility] Name Value Range Interpretation Code Description Data Chio rce(s) Supporting Document(s) SARS-CoV-2 RNA Resp Ql MARI+probe NOT DETECTED [facility] This lab was ordered by [facility] and reported by [facility]. ID Date Data Source [id number] 04/24/2021 08:45:00 AM EDT [facility] ) Name Value Range Interpretation Code Description Data Chio rce(s) Supporting Document(s) Calprotectin [Mass/mass] in Stool 28 ug/g 0-120 Normal (applies to non-numeric results) MEDENT ([facility], ) <content>Concentration Interpretatio n Follow-Up</content>
<content><16 - 50 ug/g Normal None</content>
<content>>50 -120 ug/g Borderline Re-evaluate in 4-6 weeks</content>
<content>>120 ug/g Abnormal Repeat as clinically</content>
<content>indicated</content>
<content>Performed at: [facility]</content>
<content>[address] [place] [phone]</content>
<content>Lens Cutter: Kory Frey MD, Phone: [phone]</content>
<content></content> ID Date Data Source [id number] 12/29/2020 03:54:27 PM EDT [facility] Name Value Range Interpretation Code Description Data Chio rce(s) Supporting Document(s) &PDF [facility] DDGVRz4gRgMPSpEm95/CMLsrZOKfz9NsUKzkQJr1SRebQIRxK8TxgWlyMYuKGETAYPQLAJRTC0XQFHRy vci [file] AgICAgICAgICAgICAgICAgICAgICAgICAgICAgICAgICAgICAgICAgICAgICAgICAgICAgICAgICAgIC AgICAgICAgICAgICAgICAgICAgICAgICAgICAgICAgICAgICAgICANCiAgICAgICAgICAgICAgICAgIC AgICAgICAgICAgICAgICAgICAgICAgICAgICAgICAg ICAgICAgICAgICAgICAgICAgICAgICAgICAgICAgICAgICAgICAgICAgICAgICAgICANCiAgICAgICAg ICAgICAgICAgICAgICAgICAgICAgICAgICAgICAgICAgICAgICAgICAgICAgICAgICAgICAgICAgICAg ICAgICAgICAgICAgICAgICAgICAgICAgICAgICAgIC ANCiAgICAgICAgICAgICAgICAgICAgICAgICAgICAgICAgICAgICAgICAgICAgICAgICAgICAgICAgIC AgICAgICAgICAgICAgICAgICAgICAgICAgICAgICAgICAgICAgICAgICANCiAgICAgICAgICAgICAgIC AgICAgICAgICAgICAgICAgICAgICAgICAgICAgICAg ICAgICAgICAgICAgICAgICAgICAgICAgICAgICAgICAgICAgICAgICAgICAgICAgICAgICANCiAgICAg ICAgICAgICAgICAgICAgICAgICAgICAgICAgICAgICAgICAgICAgICAgICAgICAgICAgICAgICAgICAg ICAgICAgICAgICAgICAgICAgICAgICAgICAgICAgIC AgICANCiAgICAgICAgICAgICAgICAgICAgICAgICAgICAgICAgICAgICAgICAgICAgICAgICAgICAgIC AgICAgICAgICAgICAgICAgICAgICAgICAgICAgICAgICAgICAgICAgICAgICANCiAgICAgICAgICAgIC AgICAgICAgICAgICAgICAgICAgICAgICAgICAgICAg ICAgICAgICAgICAgICAgICAgICAgICAgICAgICAgICAgICAgICAgICAgICAgICAgICAgICAgICANCiAg ICAgICAgICAgICAgICAgICAgICAgICAgICAgICAgICAgICAgICAgICAgICAgICAgICAgICAgICAgICAg ICAgICAgICAgICAgICAgICAgICAgICAgICAgICAgIC AgICAgICANCiAgICAgICAgICAgICAgICAgICAgICAgICAgICAgICAgICAgICAgICAgICAgICAgICAgIC AgICAgICAgICAgICAgICAgICAgICAgICAgICAgICAgICAgICAgICAgICAgICAgICANCjw/yUUnI1lerM CcccF9E9anMj6ZIt3LPJ4sb3WxEAAaUVfjuaVaNulO YtXgKZErExrYXfw0TXnbJP0RiJWrY4BjL6HbFOmgXM1NBWLyBCNfbDEtEQDoUCStTjO4RZTnGPpvLL1L tRLkKChwQWMwKPTdJyItNKFaHI9YMBPtX454ozEvMc5EYr9WSpArRQ9pam5XKptrDPJbIdwBBdv9RAlx AW7RlSXdB6OniJMsn7yJSvLjT6ONWQZ5BNRkYy4OAX IbOmRpRPCeNWsgYO8sBJSzGTYGvVhgrhZ4IU8XDD6kdiXoOO6JCaSfYt0vCh4WJvRxI5CgK9DiTMQfBQ HQMLaoKR8WQCXlRQS8NMQuUkMiPGZZJrXuY11bVL0KG6Gif63iIaG6TMPrKuFnIZrhBK53tJfrqoVjbI UmbDhaLP5XOr5+DQplbmRvYmoNCnhyZWYNCjAgMjkN WrKoJEXpLSDqSTUsAmK3GhEuNw9KPPHwHQOoONBqOlFyHVZjGAPxVTjnBBSeAANzCyS1BEKiJHNcEU7C DpKoQLHpMGAbUDVgDXZtGHUyba6YQTVyJGMhQYX1BcTfXCPpOYQxANiqSAWvXRO0PGSqEZYfQUWvIA2D ElXgUYFuYZLuHAgjZHEkHNOeqh0WRECqZMDlQAe1OV SdKBXqSYIyMAseCTXdMLK0NJN1IRWzHGWwLW0TCvXkDBDbDOpkBvmeEMAqXRQkvk2NXVGiGSIbNmDjTf UcSZFdXLAhELphISPmPJL8ALQ4XZNfXBCjBC9YNcDhPLEuYUg9DsXfKSPfXJGtlz1OXHIdFPLzILC2TD HbYCIaLFZaWAmnHABwRKH3WPKdETWxXSEbDT1ZGfIb PHJdHAl0AMDcDCWqWYOkgb8EQZTsSKAcDWRaDdVhIKOmWYQxNIgfAHVhSWKlAWz6PBQrGIWjZV1GLwZe YWXgXWVhGHRvTNGjIBBimx9HTQCoHJNaFCM5OtFoRZLcUEWwQLwwGOUqHRJcLCU5LGJtCYOyEM0NRjQc YWKvUBP3KmRcCBVmPCPdzv1YIVZlMOReNjH9JxCgBV ZxBSPxWHodLPEtSZPiGGUwMYKuKCIiHB1IVzCyUREtRRJ1NNUhUEWjHUXoyo4LSKGaBJDlYzb2NUUyBU CcQAFwJDjqLXXnXOLhCyeuVCEoXFMcRW3JBtZcBKWsNIU5WGHhOXTsPXGupi0GJXQiTPCoKSB5TMJgEB OzAZUwXVj2teXnnRZnFIc5LQ1LE4LcrcBbMovIDe8Y z103UDB5YWLgJx6EG1oyKc3pKVSmQNITSf1NNYd5OuIbSdA7VYWlUYO2ZmPzCOzgBTNlRsMtVBztO6Ib Mzc+HXdcOeAuYYrvZsMtUOTxS0VnMAJqGiQhFdF9ULFiVxHaYc1gPBRFFb5+DQpzdGFydHhyZWYNCjE1 HXDgXAmsEBGKJk7C ID Date Data Source [id number] 08/15/2020 08:36:00 AM EST MEDENT ([facility]) Name Value Range Interpretation Code Description Data Chio rce(s) Supporting Document(s) Prostate specific Ag [Mass/volume] in Serum or Plasma Laboratory test result MEDENT ([facility]) ID Date Data Source [id number] 08/15/2020 08:36:00 AM EST MEDENT ([facility]) Name Value Range Interpretation Code Description Data Chio rce(s) Supporting Document(s) Cholesterol [Mass/volume] in Serum or Plasma 116 mg/dL 131-200 MEDENT ([facility]) Triglyceride [Mass/volume] in Serum or Plasma 40 mg/dL 30-150 MEDENT ([facility]) Cholesterol in HDL [Mass/volume] in Serum or Plasma 51 mg/dL 35-60 MEDENT ([facility]) Cholesterol in LDL [Mass/volume] in Serum or Plasma by calcu lation 57 CALC 50-159 MEDENT ([facility]) ID Date Data Source [id number] 08/15/2020 08:36:00 AM EST MEDENT ([facility]) Name Value Range Interpretation Code Description Data Chio rce(s) Supporting Document(s) Urea nitrogen [Mass/volume] in Serum or Plasma 18 mg/dL 7-18 MEDENT ([facility]) Glucose [Mass/volume] in Serum or Plasma 91 mg/dL 74-99 MEDENT ([facility]) 100-125 mg/dL PRE-DIABETES/FASTING >126 mg/dL DIABETES/FASTING Potassium [Moles/volume] in Serum or Plasma 3.9 meq/L 3.5-5.1 [facility] ([facility]) Creatinine 0.8 mg/dL 0.6-1.3 [facility]) Sodium [Moles/volume] in Serum or Plasma 141 meq/L 136-145 [facility] ([facility]) Calcium [Mass/volume] in Serum or Plasma 8.6 mg/dL 8.5-10.1 [facility] ([facility]) Chloride [Moles/volume] in Serum or Plasma 105 meq/L 98-107 [facility] ([facility]) Carbon dioxide, total [Moles/volume] in Serum or Plasma 28 meq/L 21 -32 [facility] ([facility]) Aspartate aminotransferase [Enzymatic activity/volume] in Serum or Plasma 30 U/L 15-37 [facility] ([facility] ) Total Bilirubin 0.6 mg/dL 0.2-1.0 [facility] Alkaline phosphatase isoenzyme [Units/volume] in Serum or Pl asma 68 mg/dL 46-116 [facility]) Albumin [Mass/volume] in Serum or Plasma 4.1 g/dL 3.4-5.0 [facility]) Proteinase 3 Ab [Units/volume] in Serum 7.1 g/dL 6.4-8.2 [facility] ([facility]) Alanine aminotransferase [Enzymatic activity/volume] in Seru m or Plasma 46 U/L 12-78 [facility] A/G Ratio 1.37 CALC 1.00-1.90 [facility]) Glomerular filtration rate/1.73 sq M pre dicted among non-blacks [Volume Rate/Area] in Serum or Plasma by Creatinine-based formula (MDRD) Laboratory test result [facility] [facility] Glomerular filtration rate/1.73 sq M pre dicted among blacks [Volume Rate/Area] in Serum or Plasma by Creatinine-based formula (MDRD) Laboratory test result [facility]) <content>CHRONIC KIDNEY DISEASE STAGING PER NKF</content>
<content></content>
<content>STAGE I & II GFR >= 60 NORMAL TO MILDLY DECREASED</content>
<content>STAGE III GFR 30-59 MODERATELY DECREASED</content>
<content>STAGE IV GFR 15-29 SEVERELY DECREASED</content>
<content>STAGE V GFR <15 VERY LITTLE GFR LEFT</content>
<content>ESRD GFR <15 ON MIRROR FABRICATION SUPERVISOR</content>
<content></content> ID Date Data Source [id number] 08/15/2020 08:36:00 AM EST [facility] ([facility]) Name Value Range Interpretation Code Description Data Chio rce(s) Supporting Document(s) Leukocytes [#/volume] in Blood by Automated count 4.2 x10*3/UL 4.1-10 .9 [facility] ([facility]) Hemoglobin [Mass/volume] in Blood 14.5 g/dL 12.0-18.0 [facility] ([facility]) Erythrocytes [#/volume] in Blood by Automated count 4.56 x10*6/UL 4.2 0-6.30 [facility] ([facility]) Hematocrit [Volume Fraction] of Blood by Automated count 41.0 % 3 7.0-51.0 [facility] ([facility]) MCH 31.9 pg 26.0-32.0 [facility] MCV 90.0 fL 80.0-97.0 [facility] ([facility] Erythrocyte distribution width [Ratio] by Automated count 12.8 % 11.6-13.7 [facility] ([facility]) Platelets [#/volume] in Blood by Automated count 130 x10*3/UL 140-440 [facility] ([facility]) NOTE: RESULT VERIFIED. MCHC 35.5 g/dL 31.0-38.0 [facility] ([facility]) Lymph % 21.3 % 10.0-58.5 [facility] ([facility] MPV 8.9 FL 7.8-11.0 [facility] ([facility]) Mid % 5.3 % 1.7-9.3 [facility] ([facility] Neut % 73.4 % 37.0-92.0 [facility] ([facility] Lymph # 0.9 x10*3/UL 0.6-4.1 [facility] ([facility]) Neut # 3.1 x10*3/UL 2.0-7.8 [facility] ([facility]) Mid # 0.2 x10*3/UL 0.1-0.6 [facility] ([facility]) ID Date Data Source [id number] 07/05/2020 01:40:00 PM EST [facility] ([facility]) Name Value Range Interpretation Code Description Data Chio rce(s) Supporting Document(s) Laboratory test finding (navigational concept) Laboratory test result [facility] ([facility]) Test: COVID-19 Nasal/Naspharynx Result: POSITIVE for 2019-nCoV Reference Units: Not detected NOTE: The COVID-19 assay is under Emergency Use Authorization(EUA) by the U.S. Food and Drug Administration. [facility] is designated as a high complexity laboratory by the Clinical Laboratory Improvement Amendments of 1988(CLIA) and is qualified to perform this test. ASSAY INFORMATION: Real Time RT-PCR ID Date Data Source [id number] 07/05/2020 12:00:00 AM EST [facility] Name Value Range Interpretation Code Description Data Chio rce(s) Supporting Document(s) 2019-nCoV RNA XXX MARI+probe-Imp [facility] This lab was ordered by [facility] and reported by [facility]. ID Date Data Source [id number] 06/29/2020 12:00:00 AM EST [facility] Name Value Range Interpretation Code Description Data Chio rce(s) Supporting Document(s) SARS-CoV2 Rapid Antigen [facility] This lab was ordered by [facility] and reported by [facility]. Procedure Social History Code Duration Value Status Description Data Source(s ) Smoking 07/17/2021 12:00:00 AM EST Never Smoked Cigarettes com pleted Never Smoked Cigarettes [facility] ([facility], [facility]) Smoking 07/04/2021 04:54:12 PM EST Never smoked tobacco (findi ng) completed Never smoked tobacco (finding) [facility] (Jeison Schafer [facility]) Smoking 06/06/2021 08:17:34 AM EDT Never smoked tobacco (findi ng) completed Never smoked tobacco (finding) [facility] (Jeison Schafer MD [facility]) Smoking 05/09/2021 12:00:00 AM EDT Patient has never smoked co mpleted Patient has never smoked [facility] ([facility]) Smoking 04/24/2021 12:00:00 AM EDT Never Smoker completed Never S moker eCW1 ([facility]) Smoking 03/28/2021 11:16:13 PM EDT Never smoked tobacco (findi ng) completed Never smoked tobacco (finding) [facility] (Jeison Schafer [facility]) Alcohol intake 12/29/2020 12:00:00 AM EDT Current drinker of al cohol (finding) completed Current drinker of alcohol (finding) [facility] Smoking 10/19/2020 12:00:00 AM EST Never Smoker completed Never S moker eCW1 ([facility]) Smoking 08/31/2020 12:00:00 AM EST Never Smoker completed Never S moker eCW1 ([facility]) Smoking 08/31/2020 12:00:00 AM EST Never Smoker completed Never S moker eCW1 ([facility]) Smoking 07/27/2020 12:00:00 AM EST Patient has never smoked co mpleted Patient has never smoked [facility] ([facility], ) Vital Signs ID Date Data Source UNK Name Value Range Interpretation Code Description Data Source(s) Respiratory rate 14 /min 14 /min [facility] Systolic blood pressure 154 mm[Hg] 154 mm[Hg] [facility] ([facility]) Diastolic blood pressure 107 mm[Hg] 107 mm[Hg] [facility] Heart rate 84 /min 84 /min [facility] ([facility]) Body height 70 [in_i] 70 [in_i] [facility] ([facility]) 5'10" Body mass index (BMI) [Ratio] 27.3 kg/m2 27.3 k g/m2 [facility] ([facility]) Oxygen saturation in Arterial blood by Pulse oximetry 96 % 96 % [facility] ([facility]) Body temperature 98.6 [degF] 98.6 [degF] [facility] ([facility]) Body weight 190.00 [lb_av] 190.00 [lb_av] [facility] T ([facility]) Intraocular pressure Right eye 15 mm[Hg] 15 mm [Hg] [facility] ([facility]) Tp 09:20 Am Intraocular pressure Left eye 16 mm[Hg] 16 mm[ Hg] [facility] ([facility]) Tp 09:20 Am Intraocular pressure Right eye 15 mm[Hg] 15 mm [Hg] [facility] ([facility]) Tp 01:38 PM Intraocular pressure Left eye 14 mm[Hg] 14 mm[ Hg] [facility] ([facility]) Tp Body weight 193.0 [lb_av] 193.0 [lb_av] W1 ([facility]) Body height 70 [in_i] 70 [in_i] [facility] ([facility]) Body mass index (BMI) [Ratio] 27.69 kg/m2 27.69 kg/m2 [facility] ([facility]) Systolic blood pressure 120 mm[Hg] 120 mm[Hg] e CW1 ([facility]) Diastolic blood pressure 74 mm[Hg] 74 mm[Hg] eCW1 ([facility]) Systolic blood pressure 128 mm[Hg] 128 mm[Hg] M [facility]ENT ([facility]) Body weight 195.00 [lb_av] 195.00 [lb_av] MED[facility] T ([facility]) Diastolic blood pressure 70 mm[Hg] 70 mm[Hg] [facility] ([facility]) Heart rate 74 /min 74 /min [facility] ([facility]) Diastolic blood pressure 92 mm[Hg] 92 mm[Hg] [facility] ([facility], ) Body height 70 [in_i] 70 [in_i] [facility] ([facility], ) 5'10" Body weight 194.00 [lb_av] 194.00 [lb_av] [facility] T ([facility], ) Body mass index (BMI) [Ratio] 27.8 kg/m2 27.8 k g/m2 [facility] ([facility]) [place] body weight 166 [lb_av] 166 [lb_av] [facility] T ([facility]) Body weight 87.998 kg 87.998 kg [facility] ([facility]) Body surface area Derived from formula 2.06 m2 2.06 m2 [facility] ([facility]) Systolic blood pressure 138 mm[Hg] 138 mm[Hg] M [facility] ([facility]) Intraocular pressure Left eye 12 mm[Hg] 12 mm[ Hg] [facility] ([facility]) Tp 08:19 Am Intraocular pressure Right eye 16 mm[Hg] 16 mm [Hg] [facility] ([facility]) Tp 08:19 Am Body weight 87.544 kg 87.544 kg [facility] Systolic blood pressure 112 mm[Hg] 112 mm[Hg] [facility] Diastolic blood pressure 72 mm[Hg] 72 mm[Hg] [facility] Heart rate 79 /min 79 /min [facility] Body height 177.8 cm 177.8 cm [facility] Oxygen saturation in Arterial blood by Pulse oximetry 99 % 99 % [facility] Body mass index (BMI) [Ratio] 27.69 kg/m2 27.69 kg/m2 [facility] Body weight 196.0 [lb_av] 196.0 [lb_av] eCW1 ([facility]) Body height 70 [in_i] 70 [in_i] W1 ([facility]) Body mass index (BMI) [Ratio] 28.12 kg/m2 28.12 kg/m2 W1 ([facility]) Systolic blood pressure 116 mm[Hg] 116 mm[Hg] e CW1 ([facility]) Diastolic blood pressure 74 mm[Hg] 74 mm[Hg] eCW1 ([facility]) Body weight 194 [lb_av] 194 [lb_av] eCW1 [facility] Body height 70 [in_i] 70 [in_i] eCW1 ([facility]) Body mass index (BMI) [Ratio] 27.83 kg/m2 27.83 kg/m2 eCW1 ([facility]) Systolic blood pressure 114 mm[Hg] 114 mm[Hg] e CW1 ([facility]) Diastolic blood pressure 76 mm[Hg] 76 mm[Hg] eCW1 ([facility]) Body weight 194.0 [lb_av] 194.0 [lb_av] eCW1 ([facility]) Body height 70 [in_i] 70 [in_i] eCW1 ([facility]) Body mass index (BMI) [Ratio] 27.83 kg/m2 27.83 kg/m2 eCW1 ([facility]) Systolic blood pressure 116 mm[Hg] 116 mm[Hg] e CW1 ([facility]) Diastolic blood pressure 78 mm[Hg] 78 mm[Hg] eCW1 ([facility]) Systolic blood pressure 130 mm[Hg] 130 mm[Hg] M EDENT ([facility]) Diastolic blood pressure 79 mm[Hg] 79 mm[Hg] [facility] ([facility]) Body weight 194.00 [lb_av] 194.00 [lb_av] MED[facility] T ([facility]) Body mass index (BMI) [Ratio] 28.1 kg/m2 28.1 k g/m2 [facility] ([facility], ) Oxygen saturation in Arterial blood by Pulse oximetry 98 % 98 % [facility] ([facility], ) Room Air Body height 70 [in_i] 70 [in_i] [facility] ([facility], ) 5'10" [place] body weight 166 [lb_av] 166 [lb_av] MED[facility] T ([facility], ) Body weight 88.906 kg 88.906 kg [facility] ([facility], ) Body surface area Derived from formula 2.07 m2 2.07 m2 [facility] ([facility], ) Body weight 196.00 [lb_av] 196.00 [lb_av] MED[facility] T ([facility], ) Heart rate 70 /min 70 /min [facility] ([facility]) Systolic blood pressure 130 mm[Hg] 130 mm[Hg] [facility]) Diastolic blood pressure 80 mm[Hg] 80 mm[Hg] [facility] ([facility]) Body weight 196.00 [lb_av] 196.00 [lb_av] [facility] Body mass index (BMI) [Ratio] 28.1 kg/m2 28.1 k g/m2 [facility] ([facility]) [place] body weight 166 [lb_av] 166 [lb_av] [facility] Body weight 88.906 kg 88.906 kg [facility] ([facility]) Body surface area Derived from formula 2.07 m2 2.07 m2 [facility] ([facility]) Oxygen saturation in Arterial blood by Pulse oximetry 98 % 98 % [facility] ([facility]) Room Air Body height 70 [in_i] 70 [in_i] [facility] ([facility]) 5'10" Patient Treatment Plan of Care Planned Activity Planned Date Details Description Data Source (s) doxycycline hyclate 100 MG Oral Tablet 04/24/2021 12:00:00 AM EDT eCW ([facility]) Rosuvastatin calcium 40 MG Oral Tablet 12/29/2020 12:00:00 AM EDT [facility] Fluorouracil 50 MG/ML Topical Cream [Efudex] 10/19/2020 12:00:00 AM EST eCW1 ([facility]) Rosuvastatin calcium 40 MG Oral Tablet 07/13/2020 12:00:00 AM EST [facility]
[2021-07-20] MEDS ORDERED: propofoL 200 MG/20 ML VIAL As Ordered ONE ×2 (08:49→08:50)
[2021-07-20] MEDS ORDERED: LIDOCAINE 2% 100MG/5ML SDV (FOR ANES.) As Ordered ONE (08:50)
--- NOTE | 2021-07-20 09:09 | ROOR ---
Patient Name: Calvin Spencer Procedure Date: 07/20/2021 8:31 AM Date of : 1950 Age: 70 Room: [facility] Gender: Male Note Status: Finalized Procedure: Colonoscopy Indications: Follow-up of ulcerative colitis Providers: Mehdi Pope MD Referring MD: MORA YOUNG JR, MD Requesting Provider: Medicines: Monitored Anesthesia Care Complications: No immediate complications. Procedure: Pre-Anesthesia Assessment: - The heart rate, respiratory rate, oxygen saturations, blood pressure, adequacy of pulmonary ventilation, and response to care were monitored throughout the procedure. The Colonoscope was introduced through the anus and advanced to 10 cm into the ileum. The colonoscopy was performed without difficulty. The patient tolerated the procedure well. The quality of the bowel preparation was good. Findings: The perianal and digital rectal examinations were normal. The terminal ileum appeared normal. Four sessile polyps were found in the descending colon, hepatic flexure and cecum. The polyps were 4 to 5 mm in size. These polyps were removed with a cold snare. Resection and retrieval were complete. Mild sigmoid diverticulosis and small internal hemorrhoids. The exam was otherwise without abnormality on direct and retroflexion views. Mucosal changes were NOT found in the entire colon. Biopsies were taken with a cold forceps for histology. These biopsies were obtained for ulcerative colitis surveillance. Impression: - The examined portion of the ileum was normal. - Four 4 to 5 mm polyps in the descending colon, at the hepatic flexure and in the cecum, removed with a cold snare. Resected and retrieved. - Mild sigmoid diverticulosis and small internal hemorrhoids. - The colon was otherwise normal on direct and retroflexion views. - Mucosal changes were NOT found in the entire colon secondary to ulcerative colitis. Ulcerative colitis in endoscopic remission. The colon was biopsied randomly in a segmental fashion. Recommendation: - Await pathology results. - Telephone endoscopist for pathology results in 2 weeks. - Continue present medications. - Repeat colonoscopy in 1-3 years for polyp and UC for surveillance. Procedure Code(s): --- Professional --- 94192, Colonoscopy, flexible; with removal of tumor(s), polyp(s), or other lesion(s) by snare technique 50581, 59, Colonoscopy, flexible; with biopsy, single or multiple Diagnosis Code(s): --- Professional --- K51.90, Ulcerative colitis, unspecified, without complications K63.5, Polyp of colon CPT copyright 2019 [employer]. All rights reserved. The codes documented in this report are preliminary and upon housekeeping assistant review may be revised to meet current compliance requirements. Mehdi Pope MD Mehdi Pope MD 07/20/2021 9:09:07 AM Electronically signed by Mehdi Pope MD Number of Addenda: 0 Note Initiated On: 07/20/2021 8:31 AM Estimated Blood Loss: Estimated blood loss: none.
[2021-07-20 09:42] VITALS: BP 128/82
== END 2021-07-20 09:43 | disposition home or self-care (01) ==
LOC: M OPP 07:36
PROVIDERS: ATTEND Internal Medicine Gastroenterology
DX: K51.90 Ulcerative colitis, unspecified, without complications (principal); D12.0 Benign neoplasm of cecum; D12.4 Benign neoplasm of descending colon; I71.9 Aortic aneurysm of unspecified site, without rupture; E78.5 Hyperlipidemia, unspecified; G47.30 Sleep apnea, unspecified; Z79.899 Other long term (current) drug therapy

== ENCOUNTER → 2021-09-27 | Outpatient (REF) | payer OTHER ==
[~2021-09-27] MED LIST changes: -CLOB0.77; +CLOB1SPR; -NS 1,000 ML IV ONE
== END ==
LOC: M SFHCDERM 16:53
PROVIDERS: ATTEND Physician Assistant
DX: C44.729 Squamous cell carcinoma of skin of left lower limb, including hip (principal)

== ENCOUNTER → 2022-01-02 | Outpatient (REF) | payer OTHER | LOC: M SFHCDERM 16:48 | PROVIDERS: ATTEND Physician Assistant | DX: Z51.89 Encounter for other specified aftercare (principal) ==

== ENCOUNTER 2022-07-30 08:12 | Emergency (ER) | payer OTHER ==
[~2022-07-30] VITALS: Ht 175.3 cm; Wt 86.4 kg
[2022-07-30 08:13] VITALS: BP 118/74
[2022-07-30] MEDS ORDERED: CYCLOBENZAPRINE 5MG TABLET PO ONE (11:40)
[2022-07-30] MEDS ORDERED: PERCOCET 5MG/325MG TAB PO ONE (11:40)
[2022-07-30] MEDS ORDERED: LIDOCAINE 5% (LIDODERM) PATCH TD ONE (11:40)
[2022-07-30] MEDS ORDERED: PERC5TAB12 PO (13:30)
[2022-07-30] MEDS ORDERED: CALC20SPR (13:30)
== END 2022-07-30 13:52 | disposition home or self-care (01) ==
LOC: M ED 08:12
DX: S22.080A Wedge compression fracture of T11-T12 vertebra, initial encounter for closed fracture (principal); W00.0XXA Fall on same level due to ice and snow, initial encounter; E78.5 Hyperlipidemia, unspecified; G47.33 Obstructive sleep apnea (adult) (pediatric); Z79.82 Long term (current) use of aspirin; Z79.899 Other long term (current) drug therapy

== ENCOUNTER → 2022-09-11 | Outpatient (CLI) | payer OTHER ==
[~2022-09-11] MED LIST changes: +CALC20SPR; +PERC5TAB12 PO
== END ==
LOC: M WHC 08:45
PROVIDERS: ATTEND Internal Medicine
DX: Z13.820 Encounter for screening for osteoporosis (principal); S22.000D Wedge compression fracture of unspecified thoracic vertebra, subsequent encounter for fracture with routine healing; M85.851 Other specified disorders of bone density and structure, right thigh; M85.852 Other specified disorders of bone density and structure, left thigh

== ENCOUNTER 2024-10-12 07:01 | Day surgery (SDC) | payer OTHER ==
[~2024-10-12] VITALS: Ht 175.3 cm; Wt 91.6 kg
[~2024-10-12 07:01] MED LIST changes: +CLOB-100; -CLOB1SPR; +EZET10TA58 PO; +ONDA-282 PO; -ONDA4TAB6 PO; -ROSU20TA5; +ROSU20TA86; -ROSU40TA4 PO; +ROSU40TA81 PO; +THERTAB52 PO
[2024-10-12] MEDS ORDERED: propofoL 200 MG/20 ML VIAL As Ordered ONE (07:15)
[2024-10-12] MEDS ORDERED: LIDOCAINE 2% 100MG/5ML SDV (FOR ANES.) As Ordered ONE (07:16)
[2024-10-12] MEDS ORDERED: GLYCOPYRROLATE INJ 0.2 MG/ML 2 ML VIAL As Ordered ONE (08:17)
[2024-10-12 08:42] VITALS: TEMP 97.6
[2024-10-12 08:55] VITALS: BP 105/71; O2SAT 98
== END 2024-10-12 09:06 | disposition home or self-care (01) ==
LOC: M OPP 07:01
PROVIDERS: ATTEND Internal Medicine Gastroenterology
DX: K63.5 Polyp of colon (principal); K57.30 Diverticulosis of large intestine without perforation or abscess without bleeding; K64.8 Other hemorrhoids; K51.50 Left sided colitis without complications; G47.30 Sleep apnea, unspecified; Z79.82 Long term (current) use of aspirin; Z79.899 Other long term (current) drug therapy; I71.9 Aortic aneurysm of unspecified site, without rupture
CPT/HCPCS: 45380; 45385; 88305; J1596